=== PATIENT | female | born 1980 | race Caucasian/White ===

== ENCOUNTER → 2016-06-30 | Outpatient (CLI) | payer BC ==
--- NOTE | 2016-06-30 11:00 | MM ---
Reason for exam: follow-up at short interval from prior study. Last mammogram was performed 6 months ago. History: Excisional biopsy of the right breast, October 2014. Benign US biopsy breast VAD RT of the right breast, July 22, 2014. Taking hormonal contraceptives for 18 years. Physical Findings: Nurse did not find any significant physical abnormalities on exam. MG 3D Diag Mammo W/Cad JUSTEN Bilateral CC and MLO view(s) were taken. Prior study comparison: January 01, 2016, right breast MG diagnostic mammo RT w CAD. July 06, 2015, right breast MG 3d work up w/cad RT. The breast tissue is heterogeneously dense. This may lower the sensitivity of mammography. No significant changes when compared with prior studies. ASSESSMENT: Benign, BI-RAD 2 RECOMMENDATION: Ultrasound of the right breast in 6 months.
--- NOTE | 2016-06-30 11:02 | USB ---
Reason for exam: additional evaluation requested from abnormal screening. History: Excisional biopsy of the right breast, October 2014. Benign US biopsy breast VAD RT of the right breast, July 22, 2014. Taking hormonal contraceptives for 18 years. US Breast RT Right breast ultrasound including all four quadrants, the retroareolar region and axilla demonstrates a 0.42 x 0.43 x 0.73cm mixed lesion at 1 o'clock, a 0.38 x 0.34 x 0.13cm lesion too small to characterize at 1 o'clock, ductal ectasia at the nipple and a 0.48 x 0.37 x 0.49cm lesion too small to characterize at 10 o'clock. These results were verbally communicated with the patient and result sheet given to the patient on 06/30/16. ASSESSMENT: Probably benign, BI-RAD 3 RECOMMENDATION: Ultrasound of the right breast in 6 months.
== END | disposition home or self-care (01) ==
LOC: RADMAMWWP 09:11
PROVIDERS: ATTEND Surgery
DX: R92.8 Other abnormal and inconclusive findings on diagnostic imaging of breast (principal)
CPT/HCPCS: 76641; G0204; G0279

== ENCOUNTER → 2016-06-30 | Outpatient (CLI) | payer BC ==
[2016-06-30 09:57] LABS: ALT 25 U/L (9-52); AST 22 U/L (14-36); Alkaline Phosphatase 56 U/L (38-126); Anion Gap 11 mmol/L; Blood Urea Nitrogen 11 mg/dL (7-17); Calcium 9.2 mg/dL (8.4-10.2); Carbon Dioxide 25 mmol/L (22-30); Chloride 104 mmol/L (98-107); Cholesterol 202 mg/dL (<200); Glucose 89 mg/dL (74-99); HDL Cholesterol 62 mg/dL (40-60); Non-African American GFR(MDRD) >60 (>60 ml/min/1.73 sqM); Potassium 4.9 mmol/L (3.5-5.1); Sodium 140 mmol/L (137-145); Total Bilirubin 1.2 mg/dL (0.2-1.3); Total Protein 7.5 g/dL (6.3-8.2); Triglycerides 240 mg/dL (<150)
== END | disposition home or self-care (01) ==
LOC: LABWHC1 08:55
PROVIDERS: ATTEND Internal Medicine Interventional Cardiology
DX: E78.5 Hyperlipidemia, unspecified (principal)
CPT/HCPCS: 36415; 80053; 80061; 84443

== ENCOUNTER → 2017-02-06 | Outpatient (CLI) | payer BC ==
--- NOTE | 2017-02-06 11:10 | USB ---
Reason for exam: follow-up at short interval from prior study. History: Excisional biopsy of the right breast, October 2014. Benign US biopsy breast VAD RT of the right breast, July 22, 2014. Taking hormonal contraceptives for 18 years. Physical Findings: Nurse did not find any significant physical abnormalities on exam. US Breast RT Right breast ultrasound includes all four quadrants, the retroareolar region and axilla. Finding demonstrates a 0.4 x 0.5 x 0.6cm lesion too small to characterize at 1 o'clock, stable, a 0.40 x 0.23 x 0.37cm lesion too small to characterize at 1o'clock, stable, a 0.5 x 0.4 x 0.3cm lesion too small to characterize at 10 o'clock, stable, and duct ectasia at the nipple. No significant cystic or solid lesion greater than 0.50cm. These results were verbally communicated with the patient and result sheet given to the patient on 02/06/17. ASSESSMENT: Benign, BI-RAD 2 RECOMMENDATION: Routine screening mammogram of both breasts at age 39.
== END | disposition home or self-care (01) ==
LOC: RADUSWWP 10:08
PROVIDERS: ATTEND Obstetrics & Gynecology
DX: R92.8 Other abnormal and inconclusive findings on diagnostic imaging of breast (principal)

== ENCOUNTER → 2019-11-14 | Outpatient (CLI) | payer BC ==
--- NOTE | 2019-11-14 17:55 | P.HPBAR ---
Bariatric H&P - History & Physicial H&P Date: 11/14/19 History & Physicial: Visit/CC: INITIAL VISIT Patient initial contact: Initial weight: 98.543 kg Initial weight in pounds: 217.25 Height: 5 ft 4.5 in Initial BMI: 36.7 Last weight: Current weight: 98.543 kg Current weight in pounds: 217.25 Current BMI: 36.7 [place] body weight (based on NIH guidelines): 55.565 kg Excess body weight loss: 0.0% The patient is a 39 year-old F who presents for Bariatric Assessment. Patient seen today as a new patient in the bariatric clinic. Patient interested in sleeve gastrectomy. Patient presents with a BMI 36.7. Comorbidities include hypertension and hypercholesterolemia and chronic reflux. Denies history of DVT or dysphagia. Takes [id number] medications for her reflux. No previous EGD. No abdominal surgeries in the past. He is interested in sleeve gastrectomy. 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 No tobacco history. Review of Systems The patient denies any acute changes in vision or hearing, no dysphagia or odynophagia, no chest pain or shortness of breath, no dysuria or hematuria, no headache, no runny nose, no rectal bleeding or melena, no unexplained weight loss Past Medical History Past Medical History: No Reported History History of Any Multi-Drug Resistant Organisms: None Reported Past Surgical History: Tonsillectomy Past Anesthesia/Blood Transfusion Reactions: No Reported Reaction Past Psychological History: No Psychological Hx Reported Smoking Status: Never smoker Past Alcohol Use History: Occasional Past Drug Use History: None Reported - Past Family History Mother Family Medical History: No Reported History Surgical - Exam Vital Signs Temp Pulse Resp BP 98.1 F 90 16 131/83 11/14/19 13:50 11/14/19 13:50 11/14/19 13:50 11/14/19 13:50 Physical exam: General: Well-developed, well-nourished HEENT: Normocephalic, sclerae nonicteric Abdomen: Nontender, nondistended Extremities: No edema Neuro: Alert and oriented Bariatric Assessment & Plan (1) Obesity (BMI 30-39.9) Narrative/Plan: Both surgical and nonoperative weight loss methods discussed with the patient. Risks and benefits of both gastric bypass and sleeve gastrectomy discussed in detail as well. Patient remains interested in sleeve gastrectomy at this time. Patient has finished 2 out of the 7 months of supervised weight loss. Will plan EGD 3-4 months from now. Will have patient follow-up in the bariatric clinic following that. Status: Acute Bariatric Checklist Checklist: Plan: Checklist: EGD: 1. Hiatal hernia: 2. H. Pylori: HgbA1c: Vitamin D: Smoking: Never smoker Primary care physician referral: IL[facility] Psychiatry clearance: Cardiology clearance: Sleep study: Diet journal: VTE risk score: VTE risk level: Rehab needs at discharge:
[2019-11-15 10:13] VITALS: BP 131/83; PULSE 90; RESP 16; TEMP 98.1; BMI 36.7
== END | disposition home or self-care (01) ==
LOC: BARWHC3 13:11
PROVIDERS: ATTEND Surgery
DX: E66.01 Morbid (severe) obesity due to excess calories (principal); Z68.36 Body mass index [BMI] 36.0-36.9, adult; Z98.84 Bariatric surgery status
CPT/HCPCS: 99211

== ENCOUNTER → 2019-11-22 | Outpatient (CLI) | payer BC ==
[2019-11-22 15:30] LABS: HCT 40.3 % (34.0-46.0); HGB 13.4 gm/dL (11.4-16.0); MCH 29.4 pg (25.0-35.0); MCHC 33.2 g/dL (31.0-37.0); MCV 88.5 fL (80.0-100.0); Mean Platelet Volume 6.6; Platelet Count 320 k/uL (150-450); RBC 4.55 m/uL (3.80-5.40); RDW 12.7 % (11.5-15.5); WBC 9.1 k/uL (3.8-10.6)
[2019-11-22 23:50] LABS: African American GFR (CKD) 125.6 (60.0-200.0); Albumin 4.3 g/dL (3.80-4.90); Albumin/Globulin Ratio 2.05 (1.60-3.17); Anion Gap 9.1 mmol/L (4.00-12.00); BUN/Creat Ratio 14.29 Ratio (12.00-20.00); Calcium 9.4 mg/dL (8.7-10.3); Carbon Dioxide 25.9 mmol/L (21.6-31.8); Globulin 2.1 g/dL (1.6-3.3); Non-African American GFR(CKD) 108.4 (60.0-200.0); Potassium 4.2 mmol/L (3.5-5.5); Total Bilirubin 0.7 mg/dL (0.2-1.2); Total Protein 6.4 g/dL (6.2-8.2)
[2019-11-23 02:16] LABS: Hemoglobin A1C 5.9 % (4.0-6.0)
== END | disposition home or self-care (01) ==
LOC: LABWHC1 14:24
PROVIDERS: ATTEND Surgery
DX: K90.89 Other intestinal malabsorption (principal); E55.9 Vitamin D deficiency, unspecified; Z11.59 Encounter for screening for other viral diseases
CPT/HCPCS: 36415; 80053; 82306; 82607; 82746; 83036; 83540; 84425; 85027; 86769; 93005

== ENCOUNTER 2020-01-27 08:42 | Emergency (ER) | payer BC ==
[2020-01-27] MEDS ORDERED: SODIUM CHLORIDE 0.9% 1,000 ML IV STA (09:02)
[2020-01-27] MEDS ORDERED: ONDANSETRON 4 MG/2 ML VIAL IVP STA (09:02)
[2020-01-27] MEDS ORDERED: MAG HYDROX/AL HYDROX/SIMETH 30 ML, HYOSCYAMINE ELIXIR 10 ML PO STA ×2 (09:03)
--- NOTE | 2020-01-27 09:15 | ED ---
Abdominal Pain HPI - General Chief Complaint: Abdominal Pain Stated Complaint: upper abd pain Time Seen by Provider: 01/27/20 08:56 Source: patient, family, RN notes reviewed Mode of arrival: ambulatory Limitations: no limitations - History of Present Illness Initial Comments: This a 39-year-old female presents emergency Department chief complaint of upper abdominal pain. Patient states she's had some on-and-off issues states that she felt symptoms worsen after lifting heavy boxes this weekend. She does have a known umbilical hernia. Patient states pain is persistent states she is a somewhat twisting bending in her epigastric region denies any chest pain or shortness breath. She has meant that she has reflux and occasionally takes omeprazole presented and regular basis. She had 2 episodes of diarrhea denies any melena or hematochezia. Patient denies any hematemesis or coffee-ground emesis. She states she is very nauseated at this point. Patient states the pain wraps around her upper abdomen to her back. - Related Data Home Medications Medication Instructions Recorded Confirmed Desogen(Dose Ukn) 1 cap PO HS 10/13/14 11/14/19 Multivitamins, Thera [Theragran] 1 each PO DAILY 10/13/14 11/14/19 Rosuvastatin [Crestor] 10 mg PO DAILY 11/14/19 11/14/19 lisinopriL [Zestril] 10 mg PO DAILY 11/14/19 11/14/19 Previous Rx's Medication Instructions Recorded Dicyclomine [Bentyl] 20 mg PO TID #15 tablet 01/27/20 Omeprazole [PriLOSEC] 40 mg PO DAILY #14 cap 01/27/20 Ondansetron Odt [Zofran Odt] 4 mg PO Q8HR PRN #14 tab 01/27/20 Allergies Allergy/AdvReac Type Severity Reaction Status Date / Time acetaminophen [From Vicodin] Allergy Nausea & Verified 06/20/14 15:53 Vomiting hydrocodone bitartrate Allergy Nausea & Verified 06/20/14 15:53 [From Vicodin] Vomiting Review of Systems ROS Statement: Those systems with pertinent positive or pertinent negative responses have been documented in the HPI. ROS Other: All systems not noted in ROS Statement are negative. Past Medical History Past Medical History: No Reported History History of Any Multi-Drug Resistant Organisms: None Reported Past Surgical History: Tonsillectomy Past Anesthesia/Blood Transfusion Reactions: No Reported Reaction Past Psychological History: No Psychological Hx Reported Smoking Status: Never smoker Past Alcohol Use History: None Reported Past Drug Use History: None Reported - Past Family History Mother Family Medical History: No Reported History General Exam Limitations: no limitations General appearance: alert, in no apparent distress Head exam: Present: atraumatic, normocephalic, normal inspection Eye exam: Present: normal appearance, PERRL, EOMI. Absent: scleral icterus, conjunctival injection, periorbital swelling ENT exam: Present: normal exam, normal oropharynx, mucous membranes moist Neck exam: Present: normal inspection, full ROM. Absent: tenderness, meningismus, lymphadenopathy Respiratory exam: Present: normal lung sounds bilaterally. Absent: respiratory distress, wheezes, rales, rhonchi, stridor Cardiovascular Exam: Present: normal rhythm, tachycardia, normal heart sounds. Absent: systolic murmur, diastolic murmur, rubs, gallop, clicks GI/Abdominal exam: Present: soft, tenderness (Moderate epigastric), normal bowel sounds. Absent: distended, guarding, rebound, rigid Back exam: Absent: CVA tenderness (R), CVA tenderness (L) Neurological exam: Present: alert Skin exam: Present: warm, dry, intact, normal color. Absent: rash Course Vital Signs 01/27/20 08:46 Temperature 98.0 F Pulse Rate 118 H Respiratory 16 Rate Blood Pressure 132/91 O2 Sat by Pulse 99 Oximetry Medical Decision Making - Medical Decision Making 3-year-old female presents emergency Department chief complaint of epigastric pain. CT shows evidence of transverse colitis. Patient does have mild lactic acidosis thought this related to dehydration fluid depletion. Patient was hydrated, given antiemetics and does feel improved. Patient we discharged on clear liquid diet, antiemetics. Return parameters were discussed. - Lab Data Result diagrams: 01/27/20 09:08 01/27/20 09:08 Lab Results 01/27/20 01/27/20 01/27/20 Range/Units 09:08 09:08 09:08 WBC 11.4 H (3.8-10.6) k/uL RBC 5.12 (3.80-5.40) m/uL Hgb 14.8 (11.4-16.0) gm/dL Hct 44.4 (34.0-46.0) % MCV 86.6 (80.0-100.0) fL MCH 28.9 (25.0-35.0) pg MCHC 33.4 (31.0-37.0) g/dL RDW 12.6 (11.5-15.5) % Plt Count 324 (150-450) k/uL Neutrophils % 83 % Lymphocytes % 11 % Monocytes % 4 % Eosinophils % 2 % Basophils % 0 % Neutrophils # 9.5 H (1.3-7.7) k/uL Lymphocytes # 1.2 (1.0-4.8) k/uL Monocytes # 0.4 (0-1.0) k/uL Eosinophils # 0.2 (0-0.7) k/uL Basophils # 0.0 (0-0.2) k/uL Sodium 135 L (137-145) mmol/L Potassium 4.5 (3.5-5.1) mmol/L Chloride 100 (98-107) mmol/L Carbon Dioxide 23 (22-30) mmol/L Anion Gap 12 mmol/L BUN 7 (7-17) mg/dL Creatinine 0.57 (0.52-1.04) mg/dL Est GFR (CKD-EPI)AfAm >90 (>60 ml/min/1.73 sqM) Est GFR (CKD-EPI)NonAf >90 (>60 ml/min/1.73 sqM) Glucose 140 H (74-99) mg/dL Plasma Lactic Acid Julian (0.7-2.0) mmol/L Calcium 9.4 (8.4-10.2) mg/dL Total Bilirubin 0.7 (0.2-1.3) mg/dL AST 39 H (14-36) U/L ALT 39 H (4-34) U/L Alkaline Phosphatase 85 (38-126) U/L Total Protein 7.2 (6.3-8.2) g/dL Albumin 4.2 (3.5-5.0) g/dL Amylase 50 (30-110) U/L Lipase 86 (23-300) U/L Urine Color Yellow Urine Appearance Clear (Clear) Urine pH 7.5 (5.0-8.0) Ur Specific Palm 1.014 (1.001-1.035) Urine Protein Negative (Negative) Urine Glucose (UA) Negative (Negative) Urine Ketones Negative (Negative) Urine Blood Trace H (Negative) Urine Nitrite Negative (Negative) Urine Bilirubin Negative (Negative) Urine Urobilinogen <2.0 (<2.0) mg/dL Ur Leukocyte Esterase Negative (Negative) Urine RBC 1 (0-5) /hpf Urine WBC <1 (0-5) /hpf Ur Squamous Epith Cells <1 (0-4) /hpf Urine Bacteria Occasional H (None) /hpf Urine Mucus Rare H (None) /hpf 01/27/20 Range/Units 09:08 WBC (3.8-10.6) k/uL RBC (3.80-5.40) m/uL Hgb (11.4-16.0) gm/dL Hct (34.0-46.0) % MCV (80.0-100.0) fL MCH (25.0-35.0) pg MCHC (31.0-37.0) g/dL RDW (11.5-15.5) % Plt Count (150-450) k/uL Neutrophils % % Lymphocytes % % Monocytes % % Eosinophils % % Basophils % % Neutrophils # (1.3-7.7) k/uL Lymphocytes # (1.0-4.8) k/uL Monocytes # (0-1.0) k/uL Eosinophils # (0-0.7) k/uL Basophils # (0-0.2) k/uL Sodium (137-145) mmol/L Potassium (3.5-5.1) mmol/L Chloride (98-107) mmol/L Carbon Dioxide (22-30) mmol/L Anion Gap mmol/L BUN (7-17) mg/dL Creatinine (0.52-1.04) mg/dL Est GFR (CKD-EPI)AfAm (>60 ml/min/1.73 sqM) Est GFR (CKD-EPI)NonAf (>60 ml/min/1.73 sqM) Glucose (74-99) mg/dL Plasma Lactic Acid Julian 2.2 H* (0.7-2.0) mmol/L Calcium (8.4-10.2) mg/dL Total Bilirubin (0.2-1.3) mg/dL AST (14-36) U/L ALT (4-34) U/L Alkaline Phosphatase (38-126) U/L Total Protein (6.3-8.2) g/dL Albumin (3.5-5.0) g/dL Amylase (30-110) U/L Lipase (23-300) U/L Urine Color Urine Appearance (Clear) Urine pH (5.0-8.0) Ur Specific Palm (1.001-1.035) Urine Protein (Negative) Urine Glucose (UA) (Negative) Urine Ketones (Negative) Urine Blood (Negative) Urine Nitrite (Negative) Urine Bilirubin (Negative) Urine Urobilinogen (<2.0) mg/dL Ur Leukocyte Esterase (Negative) Urine RBC (0-5) /hpf Urine WBC (0-5) /hpf Ur Squamous Epith Cells (0-4) /hpf Urine Bacteria (None) /hpf Urine Mucus (None) /hpf Disposition Clinical Impression: Colitis Disposition: HOME SELF-CARE Condition: Stable Instructions (If sedation given, give patient instructions): Colitis (ED) Additional Instructions: Please return to the Emergency Department if symptoms worsen or any other concerns. Prescriptions: Dicyclomine [Bentyl] 20 mg PO TID #15 tablet Omeprazole [PriLOSEC] 40 mg PO DAILY #14 cap Ondansetron Odt [Zofran Odt] 4 mg PO Q8HR PRN #14 tab PRN Reason: Nausea Is patient prescribed a controlled substance at d/c from ED?: No Referrals: Rebecca Lawrence MD [Primary Care Provider] - 1-2 days Time of Disposition: 10:20
[2020-01-27 09:30] LABS: Basophils % (A) 0 %; Eosinophils # (A) 0.2 k/uL (0-0.7); Eosinophils % (A) 2 %; HCT 44.4 % (34.0-46.0); HGB 14.8 gm/dL (11.4-16.0); Lymphocytes # (A) 1.2 k/uL (1.0-4.8); Lymphocytes % (A) 11 %; MCH 28.9 pg (25.0-35.0); MCHC 33.4 g/dL (31.0-37.0); MCV 86.6 fL (80.0-100.0); Mean Platelet Volume 6.7; Monocytes # (A) 0.4 k/uL (0-1.0); Monocytes % (A) 4 %; Neutrophils # (A) 9.5 k/uL (1.3-7.7); Neutrophils % (A) 83 %; Platelet Count 324 k/uL (150-450); RBC 5.12 m/uL (3.80-5.40); RDW 12.6 % (11.5-15.5); WBC 11.4 k/uL (3.8-10.6)
[2020-01-27 09:31] LABS: ALT 39 U/L (4-34); AST 39 U/L (14-36); African American GFR (CKD) >90 (>60 ml/min/1.73 sqM); Albumin 4.2 g/dL (3.5-5.0); Alkaline Phosphatase 85 U/L (38-126); Amylase 50 U/L (30-110); Anion Gap 12 mmol/L; Blood Urea Nitrogen 7 mg/dL (7-17); Calcium 9.4 mg/dL (8.4-10.2); Carbon Dioxide 23 mmol/L (22-30); Chloride 100 mmol/L (98-107); Glucose 140 mg/dL (74-99); Non-African American GFR(CKD) >90 (>60 ml/min/1.73 sqM); Potassium 4.5 mmol/L (3.5-5.1); Sodium 135 mmol/L (137-145); Total Bilirubin 0.7 mg/dL (0.2-1.3); Total Protein 7.2 g/dL (6.3-8.2)
[2020-01-27 09:46] LABS: Appearance,Urine Clear (Clear); Bacteria,Urine Occasional /hpf; Bilirubin,Urine Negative (Negative); Blood,Urine Trace (Negative); Color,Urine Yellow; Glucose,Urine (UA) Negative (Negative); Ketones,Urine Negative (Negative); Leukocyte Esterase,Urine Negative (Negative); Mucus,Urine Rare /hpf; Nitrite,Urine Negative (Negative); PH, Urine 7.5 (5.0-8.0); Protein,Urine Negative (Negative); RBC,Urine 1 /hpf (0-5); Specific Gravity,Urine 1.014 (1.001-1.035); Squamous Epithelial Cell,Urine <1 /hpf (0-4); Urobilinogen,Urine <2.0 mg/dL (<2.0); WBC,Urine <1 /hpf (0-5)
[2020-01-27] MEDS ORDERED: diphenhydrAMINE 50 MG/ML 1 ML VIAL IVP STA (09:53)
[2020-01-27] MEDS ORDERED: METOCLOPRAMIDE 5 MG/ML 2 ML VIAL IVP STA (09:53)
[2020-01-27] MEDS ORDERED: KETOROLAC 15 MG/ML 1 ML VIAL IVP STA (10:11)
--- NOTE | 2020-01-27 10:11 | CT ---
EXAMINATION TYPE: CT abdomen pelvis w con DATE OF EXAM: 01/27/2020 COMPARISON: None HISTORY: Mid Upper Abdominal pain with history of hernia. CT DLP: 1673 mGycm Automated exposure control for dose reduction was used. TECHNIQUE: Helical acquisition of images from the lung bases through the pelvis have been completed. CONTRAST: Performed without Oral Contrast and with IV Contrast, patient injected with 100 mL of Isovue 300. FINDINGS: Umbilical hernia contains fat. LUNG BASES: No significant abnormality is appreciated. AORTA: No significant abnormality is appreciated. LIVER/GB: Liver shows low attenuation possibly due to hepatic steatosis, gallbladder is normal.. PANCREAS: No significant abnormality is seen. SPLEEN: Borderline enlarged. ADRENALS: No significant abnormality is seen. KIDNEYS: Right kidney is malrotated, there is cortical scar present in the upper pole, there is marti l excretion and enhancement. Nonobstructive calculus present at the midpole the right kidney measures only 5 to 6 mm REPRODUCTIVE ORGANS: No significant abnormality is seen BOWEL: Question some thickening of the transverse colon, ascending colon, terminal ileum, the append ix is normal, there is no bowel obstruction. Some fluid-filled loops of small bowel are present. The appendix is normal. FREE AIR: No Free Air visible. ASCITES: None visible. PELVIC ADENOPATHY: None visualized. RETROPERITONEAL ADENOPATHY: No Retroperitoneal Adenopathy visible. URINARY BLADDER: No significant abnormality is seen. OSSEOUS STRUCTURES: No significant abnormality is seen. IMPRESSION: CORRELATE FOR COLITIS. Nonobstructive right renal calculus. Hepatic steatosis and borderline splenome klaus.
[2020-01-27 10:45] VITALS: BP 120/78; PULSE 91; RESP 18; TEMP 98
== END 2020-01-27 10:45 | disposition home or self-care (01) ==
LOC: EC 08:42
DX: K52.9 Noninfective gastroenteritis and colitis, unspecified (principal); E87.2 Acidosis; K42.9 Umbilical hernia without obstruction or gangrene; Z79.3 Long term (current) use of hormonal contraceptives; Z79.899 Other long term (current) drug therapy; Z88.5 Allergy status to narcotic agent; Z88.8 Allergy status to other drugs, medicaments and biological substances
CPT/HCPCS: 36415; 80053; 82150; 83605; 83690; 85025; 81001; 74177; 99284; 96374; 96375; 96361; J2405; J1885; Q9967

== ENCOUNTER → 2020-03-17 | Day surgery (SDC) | payer BC ==
[2020-03-13 14:21] VITALS: BMI 37.2
[~2020-03-17] MED LIST: GLYCOPYRROLATE 0.2 MG/ML 2 ML VIAL ONE; LACTATED RINGERS 1,000 ML IV SCH; LIDOCAINE 1% (10MG/ML) FOR IV START INTRADERMA PRN; LIDOCAINE 1% INJ 10MG/ML (20 ML MDV) ONE; PROPOFOL 10 MG/ML 20 ML VIAL IV ONE
[2020-03-17 09:03] VITALS: RESP 16; TEMP 98.4
--- NOTE | 2020-03-17 09:50 | P.GSHP ---
History of Present Illness H&P Date: 03/17/20 Chief Complaint: GERD Patient here today for upper endoscopy. Complaints of mild reflux. Being evaluated for sleeve gastrectomy. Has not had an EGD before. No dysphagia. Past Medical History Past Medical History: GERD/Reflux History of Any Multi-Drug Resistant Organisms: None Reported Past Surgical History: Tonsillectomy Additional Past Surgical History / Comment(s): bx rt breast Past Anesthesia/Blood Transfusion Reactions: No Reported Reaction Additional Past Anesthesia/Blood Transfusion Reaction / Comment(s): no hx blood transfusion Smoking Status: Never smoker - Past Family History Mother Family Medical History: No Reported History Medications and Allergies Home Medications Medication Instructions Recorded Confirmed Type Desogen(Dose Ukn) 1 cap PO HS 10/13/14 03/13/20 History Multivitamins, Thera [Theragran] 1 each PO DAILY 10/13/14 03/13/20 History Rosuvastatin [Crestor] 10 mg PO HS 11/14/19 03/13/20 History lisinopriL [Zestril] 10 mg PO HS 11/14/19 03/13/20 History Omeprazole [PriLOSEC] 20 mg PO HS 03/13/20 03/13/20 History Allergies Allergy/AdvReac Type Severity Reaction Status Date / Time cefdinir Allergy colitis Verified 03/17/20 09:04 hydrocodone bitartrate Allergy Nausea & Verified 03/17/20 09:04 [From Vicodin] Vomiting Surgical - Exam Vital Signs Temp Pulse Resp BP Pulse Ox 98.4 F 106 H 16 135/83 97 03/17/20 09:02 03/17/20 09:02 03/17/20 09:02 03/17/20 09:02 03/17/20 09:02 Physical exam: General: Well-developed, well-nourished HEENT: Normocephalic, sclerae nonicteric Abdomen: Nontender, nondistended Extremities: No edema Neuro: Alert and oriented Assessment and Plan (1) GERD (gastroesophageal reflux disease) Narrative/Plan: Will proceed with upper endoscopy Current Visit: Yes Status: Acute Code(s): K21.9 - GASTRO-ESOPHAGEAL REFLUX DISEASE WITHOUT ESOPHAGITIS SNOMED Code(s): 054141941
--- NOTE | 2020-03-17 09:59 | P.PCN ---
Date of Procedure: 03/17/20 Procedure(s) Performed: Preoperative Dx: GERD, presurgical Postoperative Dx: Mild gastritis, small gastric polyp Procedure: EGD with Bx Anesthesia: Sedation Endoscopist: Dr. Peck Specimens: Gastric polyp Endoscopic Procedure: The patient was on the endoscopy table in the left decubitus position. The Olympus gastroscope was inserted into the oropharynx and passed under direct visualization to the region of the third portion of the duodenum. From that point the scope was slowly withdrawn inspecting all surfaces carefully. There were no neoplastic inflammatory or polypoid lesions throughout the duodenum. The pylorus was widely patent. The stomach was carefully inspected. There was gastritis present. A biopsy of the antrum took place to rule out H. pylori. Retroflexion revealed a normal hiatus. A few small gastric polyps are seen. One of which was removed. The esophagus was then carefully examined. There were no neoplastic inflammatory or polypoid lesions throughout the visualized esophagus. The patient was then taken to the recovery room in stable condition per anesthesia guidelines. Recommendations: Await biopsy results. Follow-up in the bariatric center. Resume diet.
[2020-03-17 10:19] VITALS: BP 117/73; PULSE 88
== END ==
LOC: ORWHC2ENDO 08:47
PROVIDERS: ATTEND Surgery
DX: K29.50 Unspecified chronic gastritis without bleeding (principal); K31.7 Polyp of stomach and duodenum; K21.9 Gastro-esophageal reflux disease without esophagitis; I10 Essential (primary) hypertension; E78.5 Hyperlipidemia, unspecified; Z98.890 Other specified postprocedural states; Z79.899 Other long term (current) drug therapy; Z88.1 Allergy status to other antibiotic agents; Z88.5 Allergy status to narcotic agent
CPT/HCPCS: 81025; 88305; 43239; J2001; J2704

== ENCOUNTER → 2020-04-06 | Outpatient (CLI) | payer BC ==
[2020-04-06 11:32] VITALS: BMI 37.0
== END | disposition home or self-care (01) ==
LOC: BARWHC3 08:38
PROVIDERS: ATTEND Surgery
DX: E66.01 Morbid (severe) obesity due to excess calories (principal); Z71.3 Dietary counseling and surveillance; Z68.37 Body mass index [BMI] 37.0-37.9, adult
CPT/HCPCS: 97804

== ENCOUNTER → 2020-04-28 | Outpatient (CLI) | payer BC ==
[2020-04-28 14:49] VITALS: BP 137/78; PULSE 103; RESP 16; TEMP 97.8; BMI 37.1
--- NOTE | 2020-04-28 16:31 | P.BASOAP ---
Subjective Progress Note Date: 04/28/20 Principal diagnosis: Morbid obesity Patient returns for reevaluation after recent EGD. EGD performed 03/17 showed gastritis and a small polyp. Biopsies are negative. No changes to her previous history and physical. She recently completed her seven-month supervised weight loss with her primary care physician. Objective - Vital Signs Vital signs: Vital Signs Temp 97.8 F 04/28/20 14:46 Pulse 103 H 04/28/20 14:46 Resp 16 04/28/20 14:46 BP 137/78 04/28/20 14:46 Pulse Ox Intake & Output 04/27/20 04/28/20 04/28/20 18:59 06:59 18:59 Weight 99.79 kg - Exam Abdomen: Soft, nontender, nondistended Assessment/Plan (1) Obesity (BMI 30-39.9) Narrative/Plan: Patient doing well after recent EGD. We'll move forward with plans for laparoscopic sleeve gastrectomy in June. Surgical consent form reviewed in detail with the patient. All questions answered. Plan: Date: 04/28/20 Initial Weight: 98.543 kg Initial BMI: 36.7 Current Weight: 99.79 kg Current BMI: 37.1 Type of Surgery: Vertical Sleeve Gastrectomy Total Volume in Band: Previous Volume: Volume Removed: Volume Added: Band Size:
== END | disposition home or self-care (01) ==
LOC: BARWHC3 14:20
PROVIDERS: ATTEND Surgery
DX: E66.01 Morbid (severe) obesity due to excess calories (principal); Z68.37 Body mass index [BMI] 37.0-37.9, adult
CPT/HCPCS: 99211

== ENCOUNTER → 2020-05-20 | Outpatient (CLI) | payer BC ==
[2020-05-20 14:54] LABS: Basophils % (A) 1 %; Eosinophils # (A) 0.2 k/uL (0-0.7); Eosinophils % (A) 3 %; HCT 40.2 % (34.0-46.0); HGB 13.8 gm/dL (11.4-16.0); Lymphocytes # (A) 1.8 k/uL (1.0-4.8); Lymphocytes % (A) 21 %; MCH 30.2 pg (25.0-35.0); MCHC 34.3 g/dL (31.0-37.0); MCV 88.2 fL (80.0-100.0); Mean Platelet Volume 6.3; Monocytes # (A) 0.4 k/uL (0-1.0); Monocytes % (A) 5 %; Neutrophils # (A) 6.1 k/uL (1.3-7.7); Neutrophils % (A) 70 %; Platelet Count 317 k/uL (150-450); RBC 4.56 m/uL (3.80-5.40); RDW 12.8 % (11.5-15.5); WBC 8.7 k/uL (3.8-10.6)
[2020-05-20 15:09] LABS: ALT 100 U/L (4-34); AST 85 U/L (14-36); African American GFR (CKD) >90 (>60 ml/min/1.73 sqM); Albumin 4.1 g/dL (3.5-5.0); Alkaline Phosphatase 73 U/L (38-126); Anion Gap 9 mmol/L; Blood Urea Nitrogen 11 mg/dL (7-17); Calcium 9.2 mg/dL (8.4-10.2); Carbon Dioxide 25 mmol/L (22-30); Chloride 101 mmol/L (98-107); Glucose 98 mg/dL (74-99); Non-African American GFR(CKD) >90 (>60 ml/min/1.73 sqM); Potassium 4.1 mmol/L (3.5-5.1); Sodium 135 mmol/L (137-145); Total Bilirubin 0.6 mg/dL (0.2-1.3); Total Protein 6.9 g/dL (6.3-8.2)
== END | disposition home or self-care (01) ==
LOC: LABPAT 13:53
PROVIDERS: ATTEND Surgery
DX: Z01.818 Encounter for other preprocedural examination (principal)
CPT/HCPCS: 80053; 85025

== ENCOUNTER 2020-06-15 07:45 | Inpatient (IN) | payer BC ==
[~2020-06-15 07:45] MED LIST changes: +DEXAMETHASONE SOD PHOSPHATE 4 MG/ML 1 ML VIAL IV ONE; +ENOXAPARIN 40 MG/0.4 ML SYRINGE SQ PRN; -GLYCOPYRROLATE 0.2 MG/ML 2 ML VIAL ONE; +HYDROmorphone 0.5 MG/0.5 ML SYRINGE IVP PRN; -LACTATED RINGERS 1,000 ML IV SCH; -LIDOCAINE 1% (10MG/ML) FOR IV START INTRADERMA PRN; -LIDOCAINE 1% INJ 10MG/ML (20 ML MDV) ONE; +ONDANSETRON 4 MG/2 ML VIAL IVP ONE; -PROPOFOL 10 MG/ML 20 ML VIAL IV ONE
--- NOTE | 2020-06-15 09:47 | P.GSHP ---
History of Present Illness H&P Date: 06/15/20 Chief Complaint: Morbid obesity 40-year-old female first seen in the bariatric center in November of last year. Patient has been interested in sleeve gastrectomy. Resonant with a BMI of 36.7. Recent BMI 37. Patient suffers from hypertension, hypercholesterolemia, reflux disease. Denies DVT or dysphagia. Recent EGD showed gastritis and small gastric polyp. Patient is not interested in gastric bypass given the amount of weight that she needs to lose and also the long-term comorbidities. Past Medical History Past Medical History: GERD/Reflux, Hyperlipidemia, Hypertension Additional Past Medical History / Comment(s): hx colitis once from antibiotic, hx gout, History of Any Multi-Drug Resistant Organisms: None Reported Past Surgical History: Breast Surgery, Tonsillectomy Additional Past Surgical History / Comment(s): rt breast biopsy/lumpectomy Past Anesthesia/Blood Transfusion Reactions: No Reported Reaction Smoking Status: Never smoker - Past Family History Mother Family Medical History: No Reported History Medications and Allergies Home Medications Medication Instructions Recorded Confirmed Type Multivitamins, Thera [Theragran] 1 each PO HS 10/13/14 06/09/20 History Rosuvastatin [Crestor] 10 mg PO HS 11/14/19 06/09/20 History lisinopriL [Zestril] 10 mg PO HS 11/14/19 06/09/20 History Omeprazole [PriLOSEC] 20 mg PO HS 03/13/20 06/09/20 History Melatonin 10 mg PO HS 06/09/20 06/09/20 History Norethindrone-E.estradiol-Iron 1 each PO HS 06/09/20 06/09/20 History [Aurovela 24 Fe 1 mg-20 Mcg Tab] Allergies Allergy/AdvReac Type Severity Reaction Status Date / Time cefdinir Allergy colitis Verified 06/09/20 14:11 hydrocodone bitartrate Allergy Nausea & Verified 06/09/20 14:11 [From Vicodin] Vomiting Surgical - Exam Physical exam: General: Well-developed, well-nourished HEENT: Normocephalic, sclerae nonicteric Abdomen: Nontender, nondistended Extremities: No edema Neuro: Alert and oriented Assessment and Plan (1) Obesity (BMI 30-39.9) Narrative/Plan: 40-year-old female with obesity and comorbidities. We'll proceed with laparoscopic sleeve gastrectomy at this time. The risks of bleeding, infection, stenosis, stricture, leak, abscess, fistula formation, peritonitis, poor weight loss, reflux, vomiting, conversion to an open procedure, aborting sleeve gastrectomy, ME, PE, DVT, and were discussed. The patient understands and wishes to proceed. Current Visit: No Status: Acute Code(s): E66.9 - OBESITY, UNSPECIFIED SNOMED Code(s): 471581773
[2020-06-15] MEDS: LACTATED RINGERS 1,000 ML IV SCH (10:13)
[2020-06-15] MEDS ORDERED: LIDOCAINE 1% (10MG/ML) FOR IV START INTRADERMA ONE (10:14)
[2020-06-15] MEDS ORDERED: SUCCINYLCHOLINE CHLORIDE 100 MG/5 ML SYR IV ONE (12:31)
[2020-06-15] MEDS ORDERED: LIDOCAINE 1% INJ 10MG/ML (20 ML MDV) ONE (12:31)
[2020-06-15] MEDS ORDERED: fentaNYL (PF) 50 MCG/ML 2 ML AMP ONE (12:31)
[2020-06-15] MEDS ORDERED: ROCURONIUM 10 MG/ML (10 ML VIAL) IV ONE (12:31)
[2020-06-15] MEDS ORDERED: PROPOFOL 10 MG/ML 20 ML VIAL IV ONE (12:31)
[2020-06-15] MEDS ORDERED: GLYCOPYRROLATE 0.2 MG/ML 2 ML VIAL ONE (12:31)
[2020-06-15] MEDS ORDERED: NEOSTIGMINE 1 MG/ML 10 ML VIAL ONE (12:31)
[2020-06-15] MEDS ORDERED: ONDANSETRON 4 MG/2 ML VIAL ONE (12:31)
[2020-06-15] MEDS ORDERED: MIDAZOLAM 2 MG/2 ML VIAL ONE (12:31)
[2020-06-15] MEDS ORDERED: BUPIVACAIN-EPI 0.5%-1:200,000 30 ML VIAL SQ ONE ×2 (13:00)
[2020-06-15] MEDS ORDERED: LACTATED RINGERS 1,000 ML IV ONE ×2 (13:00→16:07)
[2020-06-15] MEDS ORDERED: ACETAMINOPHEN IV (For NPO) 1,000 MG in EMPTY BAG 1 BAG IVPB ONE (14:37)
[2020-06-15] MEDS ORDERED: NALOXONE 0.4 MG/ML 1 ML VIAL IV PRN (14:37)
--- NOTE | 2020-06-15 14:44 | P.OP ---
Date of Procedure: 06/15/20 Procedure(s) Performed: PREOPERATIVE DIAGNOSIS: Morbid obesity, hypertension, hypercholesterolemia POSTOPERATIVE DIAGNOSIS: Same, umbilical hernia PROCEDURE: Laparoscopic sleeve gastrectomy , repair umbilical hernia SURGEON: Cisco EBL: Minimal ANESTHESIA: General COMPLICATIONS: None OPERATIVE PROCEDURE: Patient was placed in the operating table in the supine position. She was placed under general anesthesia at that time. The abdomen was prepped and draped in sterile fashion after the patient was placed in lithotomy. A 5 mm optical trocar was used to enter the abdominal cavity in the left upper quadrant. Insufflation took place to 15 millimeters mercury. An additional right subxiphoid 5 mm trocar was then placed under direct visualization and then removed. 2 additional 5 mm trochars were placed in the right upper quadrant and left upper quadrant under direct visualization and a 15 mm trocar in the infraumbilical location through the patient's umbilical hernia fascial defect. The liver was retracted using a medium [place] liver retractor through the right subxiphoid trocar site. The hiatus was inspected. The patient had no visible hiatal hernia At that point I moved to the mid aspect of the greater curvature the stomach. The short gastric vasculature was divided using a LigaSure device proximally. I then switched and divided the short gastrics distally to a 3-4 cm from the pylorus. The dissection took place up to the left diaphragmatic crura at that point. The posterior short gastrics were likewise divided using the LigaSure device. Once the stomach was fully mobilized the blunt tipped 40-[place]izen [place] bougie dilator was advanced into the stomach and advanced all the way to the prepyloric location. A black echelon 60 stapler was utilized and fired tangentially across the antrum taking care to avoid narrowing at the incisura angularis. Subsequent firings of the stapler took place. A total of 5 green echelon 60 staplers with seam guard took place proximally staying on the outer edge of our dilator. Once we reached the most proximal portion of the stomach a single firing of the gold echelon 60 stapler without seen guard took place. The oral gastric tube was reinserted. The stomach was insufflated with approximately 100 mL of methylene blue. No eviden ce of leak or obstruction was seen. The distal aspect of the sleeve was then reapproximated to the gastrosplenic and gastrocolic ligament using a short running 2-0 strata fix suture. This was done to prevent kinking or twisting of the sleeve. Tisseel fibrin glue was used along the length of the staple line. The stomach remnant was removed from the 15 mm trocar site without difficulty. The pneumoperitoneum was evacuated. The fascia at the 15 more site was closed using interrupted #1 Vicryl sutures in a [id number] fashion closing the umbilical hernia defect nicely. The skin at all 5 incisions were closed using 4-0 Monocryl sutures. Skin glue was then applied. DISPOSITION: Stable to recovery room
[2020-06-15] MEDS ORDERED: diphenhydrAMINE 50 MG/ML 1 ML VIAL IVP ONE (15:15)
[2020-06-15] MEDS ORDERED: ACETAMINOPHEN IV (For NPO) 1,000 MG/100 ML VIAL IVPB ONE (15:33)
[2020-06-15] MEDS: ALBUTEROL NEBULIZED 2.5 MG/3 ML INHALATION SCH ×2 (16:35→20:31)
[2020-06-15] MEDS: 0.9% NACL WITH KCL 20 MEQ/L 1,000 ML IV SCH (17:01)
--- NOTE | 2020-06-15 20:21 | P.CONS ---
History of Present Illness - Reason for Consult Consult date: 06/15/20 Medical management - Chief Complaint Status post sleeve gastrectomy and repair of umbilical hernia. - History of Present Illness Patient is a 40-year-old female with a known history of hypertension, hyperlipidemia, GERD and osteoarthritis, history of gout and morbid obesity was admitted to hospital was admitted to the hospital for laparoscopic sleeve gastrectomy and elevated off umbilical hernia. Patient is still drowsy but awake alert and oriented. Patient's family member is at bedside. Currently complains of bloating sensation and abdominal discomfort. No complaints of chest pain or shortness of breath. No fever no chills. No headache or dizziness or lightheadedness. Blood pressure is 117/77 mmHg and heart rate 87. Review of Systems Constitutional: Patient denies any fever or chills . No generalized weakness or weight loss. Abdomen: Patient denied nausea vomiting and diarrhea and abdominal pain. Cardiovascular: Patient denies any chest pain or short of breath no palpitations. Respiratory: patient denied any cough or sputum production. No shortness of breath Neurologic: Patient denied any numbness or tingling headache. Musculoskeletal: Patient denies any complaints of joint swelling or deformity. Skin: Negative Psychiatric: Negative Endocrine: No heat or cold intolerance. No recent weight gain. Genitourinary: No dysuria or hematuria. All other 14 point ROS negative except the above Past Medical History Past Medical History: GERD/Reflux, Hyperlipidemia, Hypertension Additional Past Medical History / Comment(s): hx colitis once from antibiotic, hx gout, History of Any Multi-Drug Resistant Organisms: None Reported Past Surgical History: Breast Surgery, Tonsillectomy Additional Past Surgical History / Comment(s): rt breast biopsy/lumpectomy Past Anesthesia/Blood Transfusion Reactions: No Reported Reaction Smoking Status: Never smoker - Past Family History Mother Family Medical History: No Reported History Medications and Allergies Home Medications Medication Instructions Recorded Confirmed Type Multivitamins, Thera [Theragran] 1 each PO HS 10/13/14 06/15/20 History Rosuvastatin [Crestor] 10 mg PO HS 11/14/19 06/15/20 History lisinopriL [Zestril] 10 mg PO HS 11/14/19 06/15/20 History Omeprazole [PriLOSEC] 20 mg PO HS 03/13/20 06/15/20 History Melatonin 10 mg PO HS 06/09/20 06/15/20 History Norethindrone-E.estradiol-Iron 1 each PO HS 06/09/20 06/15/20 History [Aurovela 24 Fe 1 mg-20 Mcg Tab] Allergies Allergy/AdvReac Type Severity Reaction Status Date / Time cefdinir Allergy colitis Verified 06/15/20 10:17 hydrocodone bitartrate Allergy Nausea & Verified 06/15/20 10:17 [From Vicodin] Vomiting Physical Exam Vitals: Vital Signs Temp Pulse Resp BP Pulse Ox 06/15/20 15:14 74 16 124/68 94 L 06/15/20 14:59 75 16 129/70 97 06/15/20 14:44 86 16 132/71 94 L 06/15/20 09:56 98.5 F 100 16 132/85 95 Intake and Output 06/15/20 06/15/20 06/15/20 06:59 14:59 22:59 Intake Total 1450 Output Total 10 Balance 1440 Intake: IV 1450 Output: Estimated Blood Loss 10 Other: Weight 98 kg PHYSICAL EXAMINATION: Patient is lying in the bed comfortably, no acute distress, awake alert and oriented.. HEENT: Normocephalic. Neck is supple. Pupils reactive. Nostrils clear. Oral cavity is moist. Ears reveal no drainage. Neck reveals no JVD, carotid bruits, or thyromegaly. CHEST EXAMINATION: Trachea is central. Symmetrical expansion. Lung hart clear to auscultation and percussion. CARDIAC: Normal S1, S2 with no gallops. No murmurs ABDOMEN: Soft. Bowel sounds diminished. No organomegaly. No abdominal bruits. Extremities: reveal no edema. No clubbing or cyanosis Neurologically awake, alert, oriented x3 with well-coordinated movements. No focal deficits noted Skin: No rash or skin lesions. Psychiatric: Coperative. Nonsuicidal Musculoskeletal: No joint swelling or deformity. Normal range of motion. Assessment and Plan Assessment: Status post sleeve gastrectomy and repair of umbilical hernia. Morbid obesity with BMI 37.1 Hypertension Hyperlipidemia GERD History of right breast biopsy/lumpectomy DVT prophylaxis Plan: Patient will be continued pain management and bowel regimen. Encourage incentive spirometry and ambulation. Currently patient is nothing by mouth except ice chips. Fluoroscopy upper GI series was ordered for tomorrow. Blood pressure medications will be on hold today and follow-up. Continue with other home medications. Will follow-up closely and further recommendations based on the clinical course. CBC and BMP was ordered for tomorrow morning. Thank you for your consult. Time with Patient: Greater than 30
[2020-06-15] MEDS: diphenhydrAMINE 50 MG/ML 1 ML VIAL IVP PRN (20:43)
[2020-06-15] MEDS: HYDROmorphone 1 MG/ML 1 ML SYRINGE IVP PRN (20:43)
[2020-06-15] MEDS: ONDANSETRON 4 MG/2 ML VIAL IVP PRN (20:43)
[2020-06-15] MEDS: ATORVASTATIN 20 MG TAB PO SCH (20:44)
[2020-06-15] MEDS: ENOXAPARIN 40 MG/0.4 ML SYRINGE SQ SCH (20:44)
[2020-06-15] MEDS: MELATONIN 5 MG TABLET PO SCH (20:44)
[2020-06-15] MEDS ORDERED: NON FORMULARY DRUG (Omeprazole 40 MG Capsule.Dr) PO SCH (21:00)
[2020-06-16] MEDS: 0.9% NACL WITH KCL 20 MEQ/L 1,000 ML IV SCH ×2 (00:10→06:42)
[2020-06-16] MEDS: HYDROmorphone 1 MG/ML 1 ML SYRINGE IVP PRN ×2 (02:45→22:25)
[2020-06-16] MEDS: ONDANSETRON 4 MG/2 ML VIAL IVP PRN ×3 (02:45→21:22)
[2020-06-16] MEDS: diphenhydrAMINE 50 MG/ML 1 ML VIAL IVP PRN (02:45)
[2020-06-16] MEDS: LACTATED RINGERS 1,000 ML IV SCH (06:43)
[2020-06-16] MEDS: ALBUTEROL NEBULIZED 2.5 MG/3 ML INHALATION SCH ×5 (07:38→21:41)
[2020-06-16] MEDS: PANTOPRAZOLE 40 MG/10 ML VIAL IV SCH (07:42)
[2020-06-16] MEDS: 1: MVI, ADULT NO.4 WITH VIT K 10 ML, THIAMINE 100 MG, FOLIC ACID 1 MG, POTASSIUM CHLORID IV SCH ×12 (08:01→17:41)
[2020-06-16] MEDS: HYOSCYAMINE ORAL DROPS 1.875 MG/15 ML BOTTLE PO PRN ×2 (08:04→17:42)
--- NOTE | 2020-06-16 09:05 | FL ---
EXAMINATION TYPE: FL UGI DATE OF EXAM: 06/16/2020 LIMITED UGI: CLINICAL HISTORY: Morbid Obesity, gastric sleeve surgery yesterday. TECHNIQUE: Limited UGI-esophagram is performed utilizing 20 oz of Isovue. A total of 34 seconds of f luoroscopic time was utilized during procedure and 21 images obtained. COMPARISON: CT abdomen and pelvis January 27, 2020 FINDINGS: The patient swallowed contrast without difficulty or delay. Esophageal peristalsis and mo tility are satisfactory. There is good flow of contrast along the diaphragmatic hiatus into proximal stomach through proximal anastomosis and subsequent flow into gastric sleeve. There is mild delay in flow from distal sleeve and anastomosis into pylorus and duodenal sweep. Patient remains asymptomati c. There is no evidence of contrast extravasation to suggest leak. IMPRESSION: No evidence of leak or significant obstruction status post recent gastric sleeve surgery yesterday.
[2020-06-16] MEDS: ENOXAPARIN 40 MG/0.4 ML SYRINGE SQ SCH ×2 (09:20→21:23)
[2020-06-16 09:46] LABS: Basophils # (A) 0.01 X 10*3/uL (0.00-0.10); Basophils % (A) 0.1 %; Eosinophils # (A) 0 X 10*3/uL (0.04-0.35); Eosinophils % (A) 0 %; HGB 13.2 g/dL (12.0-15.0); Lymphocytes # (A) 1.34 X 10*3/uL (0.90-5.00); Lymphocytes % (A) 10.6 %; MCH 29.7 pg (27.0-32.0); MCHC 33.8 g/dL (32.0-37.0); MCV 87.6 fL (80.0-97.0); Mean Platelet Volume 9.1 fL (9.5-12.2); Monocytes # (A) 0.59 X 10*3/uL (0.20-1.00); Monocytes % (A) 4.6 %; Neutrophils % (A) 84.3 %; Platelet Count 293 X 10*3/uL (140-440); RBC 4.45 X 10*6/uL (4.10-5.20); RDW 12.4 % (11.5-14.5); WBC 12.69 X 10*3/uL (4.50-10.00)
[2020-06-16 11:02] LABS: African American GFR (CKD) 131.2 (60.0-200.0); Anion Gap 11.6 mmol/L (4.00-12.00); Calcium 8.5 mg/dL (8.7-10.3); Carbon Dioxide 22.4 mmol/L (21.6-31.8); Magnesium 1.9 mg/dL (1.5-2.4); Non-African American GFR(CKD) 113.2 (60.0-200.0); Phosphorus 3.7 mg/dL (2.4-5.1); Potassium 4.5 mmol/L (3.5-5.5)
--- NOTE | 2020-06-16 11:06 | P.PN ---
<Sameera Brand - Last Filed: 06/16/20 11:01> Subjective Progress Note Date: 06/16/20 CHIEF COMPLAINT: Morbid obesity, hypertension and hypercholesterolemia HISTORY OF PRESENT ILLNESS: Patient is status post laparoscopic sleeve gastrectomy and repair of umbilical hernia. Patient is complaining of nausea and pain mostly in the umbilical area. She had one episode of a small amount of vomiting last night. That has resolved. She has been up and ambulating in the hallway. She does not like taking the IV Dilaudid it makes her too sleepy. She is requesting something else for pain. She cannot take [place] she's had reaction to Vicodin in the past causing worsening vomiting. She had her upper GI which showed no evidence of leak or obstruction and she has been started on a bariatric clear liquid diet. Afebrile. WBC 12.69 Hgb 13.2 potassium 4.5 magnesium 1.9 PHYSICAL EXAM: VITAL SIGNS: Reviewed. GENERAL: Well-developed in no acute distress. HEENT: No sclera icterus. Extraocular movements grossly intact. Moist buccal mucosa. Head is atraumatic, normocephalic. ABDOMEN: Soft. Nondistended. Incision sites clean dry and intact NEUROLOGIC: Alert and oriented. Cranial nerves II through XII grossly intact. ASSESSMENT: 1. Morbid obesity status post laparoscopic sleeve gastrectomy and repair of umbilical hernia 2. Hypertension 3. Hypercholesterolemia PLAN: -Start bariatric clear liquid diet -Add Toradol and IV Tylenol for pain -Continue IV fluids and vitamin bag -Continue Zofran as needed for nausea -Encouraged patient to use incentive spirometer and ambulate -GI prophylaxis Protonix and DVT prophylaxis Lovenox Physician Counter Server note has been reviewed by physician. Signing provider agrees with the documented findings, assessment, and plan of care. Objective - Vital Signs Vital signs: Vital Signs Temp 98.4 F 06/16/20 07:20 Pulse 77 06/16/20 07:50 Resp 18 06/16/20 09:50 BP 150/83 06/16/20 07:20 Pulse Ox 97 06/16/20 10:54 Intake & Output 06/15/20 06/16/20 06/16/20 18:59 06:59 18:59 Intake Total 2200 Output Total 10 Balance 2190 Weight 98 kg Intake: IV 2200 Output: Estimated Blood Loss 10 Other: Voiding Method Toilet Toilet # Voids 1 - Labs CBC & Chem 7: 06/16/20 06:05 Labs: Abnormal Lab Results - Last 24 Hours (Table) 06/16/20 Range/Units 06:05 WBC 12.69 H (4.50-10.00) X 10*3/uL MPV 9.1 L (9.5-12.2) fL Immature Gran # 0.05 H (0.00-0.04) X 10*3/uL Neutrophils # 10.70 H (1.80-7.70) X 10*3/uL Eosinophils # 0 L (0.04-0.35) X 10*3/uL <CiscoDavid - Last Filed: 06/16/20 16:47> Subjective As above. Patient says her pain is improving. Labs noted. Says she is ALLERGIC to Vicodin but can tolerate Tylenol with codeine. We'll start that oral medication. Continue bariatric liquids. Upper GI noted. Possible discharge tomorrow. Objective - Vital Signs Vital signs: Vital Signs Temp 98.4 F 06/16/20 13:00 Pulse 78 06/16/20 13:00 Resp 17 06/16/20 13:00 BP 139/73 06/16/20 13:00 Pulse Ox 97 06/16/20 13:00 Intake & Output 06/15/20 06/16/20 06/16/20 18:59 06:59 18:59 Intake Total 2200 300 Output Total 10 Balance 2190 300 Weight 98 kg 98 kg Intake: IV 2200 Oral 300 Output: Estimated Blood Loss 10 Other: Voiding Method Toilet Toilet # Voids 1 - Labs CBC & Chem 7: 06/16/20 06:05 06/16/20 06:05 Labs: Abnormal Lab Results - Last 24 Hours (Table) 06/16/20 06/16/20 Range/Units 06:05 06:05 WBC 12.69 H (4.50-10.00) X 10*3/uL MPV 9.1 L (9.5-12.2) fL Immature Gran # 0.05 H (0.00-0.04) X 10*3/uL Neutrophils # 10.70 H (1.80-7.70) X 10*3/uL Eosinophils # 0 L (0.04-0.35) X 10*3/uL Sodium 134 L (135-145) mmol/L BUN 7.0 L (9.0-27.0) mg/dL Calcium 8.5 L (8.7-10.3) mg/dL Assessment and Plan (1) Obesity (BMI 30-39.9) Current Visit: No Status: Acute Code(s): E66.9 - OBESITY, UNSPECIFIED SNOMED Code(s): 359215597
[2020-06-16] MEDS: KETOROLAC 15 MG/ML 1 ML VIAL IVP SCH ×2 (11:22→17:40)
[2020-06-16] MEDS: ACETAMINOPHEN IV (For NPO) 1,000 MG in EMPTY BAG 1 BAG IVPB SCH ×2 (11:30→17:41)
[2020-06-16 14:15] VITALS: BMI 37.0
--- NOTE | 2020-06-16 16:38 | P.PN ---
Subjective Progress Note Date: 06/16/20 - Reason for Consult Consult date: 06/15/20 Medical management - Chief Complaint Status post sleeve gastrectomy and repair of umbilical hernia. - History of Present Illness Patient is a 40-year-old female with a known history of hypertension, hyperlipidemia, GERD and osteoarthritis, history of gout and morbid obesity was admitted to hospital was admitted to the hospital for laparoscopic sleeve gastrectomy and elevated off umbilical hernia. Patient is still drowsy but awake alert and oriented. Patient's family member is at bedside. Currently complains of bloating sensation and abdominal discomfort. No complaints of chest pain or shortness of breath. No fever no chills. No headache or dizziness or lightheadedness. Blood pressure is 117/77 mmHg and heart rate 87. 06/16/2020 Patient is seen and evaluated and follow-up currently sitting up in the chair experiencing some nausea and abdominal discomfort. Just given some Zofran and states is feeling better. Patient is started on bariatric diet although not tolerating very well due to nausea. Patient continues to have abdominal bloating and discomfort noted at the surgical site. She denies passing gas or having bowel movements and states she is just burping. Blood pressure slightly elevated and will resume home medication lisinopril. Incentive spirometer ordered and instructed to continue using at least 10 times every hour while awake. Patient also instructed to increase activity as tolerated. Review of systems: Constitutional: No reports of fatigue, fever, or chills Cardiovascular: No reports of chest pain or palpitations Respiratory: No reports of shortness of breath or cough GI: Reports nausea, reports of vomiting, or diarrhea, denies gas or bowel movement today, reports abdominal discomfort and tenderness noted at the surgi kalina site : No reports of dysuria or retention Neurovascular: No reports of weakness or numbness All medications have been reviewed Objective - Vital Signs Vital signs: Vital Signs Temp 98.4 F 06/16/20 13:00 Pulse 78 06/16/20 13:00 Resp 17 06/16/20 13:00 BP 139/73 06/16/20 13:00 Pulse Ox 97 06/16/20 13:00 Intake & Output 06/15/20 06/16/20 06/16/20 18:59 06:59 18:59 Intake Total 2200 300 Output Total 10 Balance 2190 300 Weight 98 kg 98 kg Intake: IV 2200 Oral 300 Output: Estimated Blood Loss 10 Other: Voiding Method Toilet Toilet # Voids 1 - Exam Patient is sitting up in the chair, lightly uncomfortable abdominal discomfort nausea, no acute distress, awake alert and oriented.. HEENT: Normocephalic. Neck is supple. Pupils reactive. Nostrils clear. Oral cavity is moist. Ears reveal no drainage. Neck reveals no JVD, carotid bruits, or thyromegaly. CHEST EXAMINATION: Trachea is central. Symmetrical expansion. Lung hart clear to auscultation and percussion. CARDIAC: Normal S1, S2 with no gallops. No murmurs ABDOMEN: Soft. Tenderness noted. Bowel sounds diminished. No organomegaly. No abdominal bruits. Extremities: reveal no edema. No clubbing or cyanosis Neurologically awake, alert, oriented x3 with well-coordinated movements. No focal deficits noted Skin: No rash or skin lesions. Psychiatric: Cooperative. Non-suicidal Musculoskeletal: No joint swelling or deformity. Normal range of motion. - Labs CBC & Chem 7: 06/16/20 06:05 06/16/20 06:05 Labs: Abnormal Lab Results - Last 24 Hours (Table) 06/16/20 06/16/20 Range/Units 06:05 06:05 WBC 12.69 H (4.50-10.00) X 10*3/uL MPV 9.1 L (9.5-12.2) fL Immature Gran # 0.05 H (0.00-0.04) X 10*3/uL Neutrophils # 10.70 H (1.80-7.70) X 10*3/uL Eosinophils # 0 L (0.04-0.35) X 10*3/uL Sodium 134 L (135-145) mmol/L BUN 7.0 L (9.0-27.0) mg/dL Calcium 8.5 L (8.7-10.3) mg/dL Assessment and Plan Assessment: Status post sleeve gastrectomy and repair of umbilical hernia. Morbid obesity with BMI 37.1 Hypertension, will resume home medication Hyperlipidemia GERD History of right breast biopsy/lumpectomy DVT prophylaxis Plan: Patient will be continued pain management and bowel regimen. Encourage incentive spirometry and ambulation. Currently patient started on bariatric clear liquid diet by surgery. She continues with nausea and abdominal discomfort. Fluoroscopy upper GI series done today showing no evidence of leak or significant obstruction status post recent gastric sleeve surgery. Blood pressure medications lisinopril will be resumed. Continue with other home medications. Will follow-up closely and further recommendations based on the clinical course. WBC slightly elevated at 12.69 most likely reactive, hemoglobin is 13.2, sodium is 134, potassium is 4.5, current creatinine is 0.6, and magnesium is 1.9. Continue with IV fluids as well as patient continues to have nausea and instructed to slowly advance with diet per surgical recommenda tions and as tolerated. Zofran as needed. Thank you for this consult and will continue to follow along with you during hospitalization .
[2020-06-16] MEDS ORDERED: ACET/COD 120MG/12MG LIQ 5ML CUP PO PRN (16:46)
[2020-06-16] MEDS: SIMETHICONE 40 MG/0.6 ML DROPS 2,000 MG/30 ML BOTTLE PO PRN (17:42)
[2020-06-16] MEDS ORDERED: lisinopriL 10 MG TAB PO SCH (21:00)
[2020-06-16] MEDS: ATORVASTATIN 20 MG TAB PO SCH ×2 (21:22→21:34)
[2020-06-16] MEDS: MELATONIN 5 MG TABLET PO SCH (21:22)
[2020-06-17] MEDS: ACETAMINOPHEN IV (For NPO) 1,000 MG in EMPTY BAG 1 BAG IVPB SCH ×2 (00:16→07:27)
[2020-06-17] MEDS: KETOROLAC 15 MG/ML 1 ML VIAL IVP SCH ×3 (00:21→13:40)
[2020-06-17] MEDS: 1: MVI, ADULT NO.4 WITH VIT K 10 ML, THIAMINE 100 MG, FOLIC ACID 1 MG, POTASSIUM CHLORID IV SCH ×6 (03:00)
[2020-06-17] MEDS: ONDANSETRON 4 MG/2 ML VIAL IVP PRN (04:39)
[2020-06-17] MEDS: SIMETHICONE 40 MG/0.6 ML DROPS 2,000 MG/30 ML BOTTLE PO PRN (04:40)
[2020-06-17] MEDS: LACTATED RINGERS 1,000 ML IV SCH (05:56)
[2020-06-17] MEDS ORDERED: bisacodyL 5 MG TABLET.DR PO PRN (08:00)
[2020-06-17 09:00] VITALS: BP 142/89; RESP 16; TEMP 97.9
[2020-06-17] MEDS: ALBUTEROL NEBULIZED 2.5 MG/3 ML INHALATION SCH (09:05)
[2020-06-17] MEDS: PANTOPRAZOLE 40 MG/10 ML VIAL IV SCH (09:13)
[2020-06-17] MEDS: ENOXAPARIN 40 MG/0.4 ML SYRINGE SQ SCH (09:13)
[2020-06-17 09:20] VITALS: PULSE 89
[2020-06-17] MEDS ORDERED: ALBUTEROL NEBULIZED 2.5 MG/3 ML INHALATION PRN (10:23)
[2020-06-17 11:02] LABS: Basophils # (A) 0.02 X 10*3/uL (0.00-0.10); Basophils % (A) 0.2 %; Eosinophils # (A) 0.05 X 10*3/uL (0.04-0.35); Eosinophils % (A) 0.5 %; HCT 38.6 % (37.2-46.3); HGB 12.5 g/dL (12.0-15.0); Lymphocytes # (A) 1.41 X 10*3/uL (0.90-5.00); Lymphocytes % (A) 14.2 %; MCH 29.5 pg (27.0-32.0); MCHC 32.4 g/dL (32.0-37.0); Mean Platelet Volume 9.1 fL (9.5-12.2); Monocytes # (A) 0.55 X 10*3/uL (0.20-1.00); Monocytes % (A) 5.5 %; Neutrophils # (A) 7.88 X 10*3/uL (1.80-7.70); Neutrophils % (A) 79.2 %; Platelet Count 259 X 10*3/uL (140-440); RBC 4.24 X 10*6/uL (4.10-5.20); RDW 12.8 % (11.5-14.5); WBC 9.95 X 10*3/uL (4.50-10.00)
--- NOTE | 2020-06-17 12:02 | P.DS ---
Providers Date of admission: 06/15/20 09:07 Expected date of discharge: 06/17/20 Attending physician: David Peck Consults: 06/15/20 14:44 Consult Physician Routine Consulting Provider: Carol Maxwell Consult Reason/Comments: med mgmt Do you want consulting provider notified?: Yes Primary care physician: Rebecca Lawrence - Discharge Diagnosis(es) (1) Obesity (BMI 30-39.9) Current Visit: No Status: Acute Hospital Course: Patient admitted electively for sleeve gastrectomy. Postoperatively he has done well. Upper GI showed no evidence of leak or obstruction. White blood cell count normal. Vital signs are stable. Abdomen soft nontender nondistended, incisions clean and dry. She would like to go home. Tolerating good volume of liquids. September discharge. Follow-up one week. Plan - Discharge Summary Discharge Rx Participant: Yes New Discharge Prescriptions: No Action Multivitamins, Thera [Theragran] 1 each PO HS lisinopriL [Zestril] 10 mg PO HS Rosuvastatin [Crestor] 10 mg PO HS Omeprazole [PriLOSEC] 20 mg PO HS Norethindrone-E.estradiol-Iron [Aurovela 24 Fe 1 mg-20 Mcg Tab] 1 each PO HS Melatonin 10 mg PO HS Discharge Medication List Multivitamins, Thera [Theragran] 1 each PO HS 10/13/14 [History] Rosuvastatin [Crestor] 10 mg PO HS 11/14/19 [History] lisinopriL [Zestril] 10 mg PO HS 11/14/19 [History] Omeprazole [PriLOSEC] 20 mg PO HS 03/13/20 [History] Melatonin 10 mg PO HS 06/09/20 [History] Norethindrone-E.estradiol-Iron [Aurovela 24 Fe 1 mg-20 Mcg Tab] 1 each PO HS 06/09/20 [History]
--- NOTE | 2020-06-17 13:55 | P.PN ---
Subjective Progress Note Date: 06/17/20 - Reason for Consult Consult date: 06/15/20 Medical management - Chief Complaint Status post sleeve gastrectomy and repair of umbilical hernia. - History of Present Illness Patient is a 40-year-old female with a known history of hypertension, hyperlipidemia, GERD and osteoarthritis, history of gout and morbid obesity was admitted to hospital was admitted to the hospital for laparoscopic sleeve gastrectomy and elevated off umbilical hernia. Patient is still drowsy but awake alert and oriented. Patient's family member is at bedside. Currently complains of bloating sensation and abdominal discomfort. No complaints of chest pain or shortness of breath. No fever no chills. No headache or dizziness or lightheadedness. Blood pressure is 117/77 mmHg and heart rate 87. 06/16/2020 Patient is seen and evaluated and follow-up currently sitting up in the chair experiencing some nausea and abdominal discomfort. Just given some Zofran and states is feeling better. Patient is started on bariatric diet although not tolerating very well due to nausea. Patient continues to have abdominal bloating and discomfort noted at the surgical site. She denies passing gas or having bowel movements and states she is just burping. Blood pressure slightly elevated and will resume home medication lisinopril. Incentive spirometer ordered and instructed to continue using at least 10 times every hour while awake. Patient also instructed to increase activity as tolerated. 06/17/2020 Patient is seen this morning states she is feeling much better and anticipating going home today. Denies any nausea or vomiting. Patient states she is passing gas although no reports of bowel movements at this time. Patient is tolerating bariatric clear liquid diet and instructed the patient to continue with strict dietary guidelines per surgical recommendations. Patient okay to resume home medications for blood pressure although discussed with the patient about follow- up about cholesterol medications and also discussing with surgery about medications to avoid status post sleeve gastrectomy. Review of systems: Constitutional: No reports of fatigue, fever, or chills Cardiovascular: No reports of chest pain or palpitations Respiratory: No reports of shortness of breath or cough GI: No reports of nausea, vomiting, or diarrhea. Reports passing gas but no bowel movements as of yet : No reports of dysuria or retention Neurovascular: No reports of weakness or numbness All medications have been reviewed Objective - Vital Signs Vital signs: Vital Signs Temp 97.9 F 06/17/20 08:00 Pulse 89 06/17/20 09:20 Resp 16 06/17/20 08:00 BP 142/89 06/17/20 08:00 Pulse Ox 97 06/17/20 08:00 Intake & Output 06/16/20 06/17/20 06/17/20 18:59 06:59 18:59 Intake Total 1321.2 Balance 1321.2 Weight 98 kg Intake: Intake, IV Titration 1021.2 Amount Mvi, Adult No.4 with Vit 1021.2 K 10 ml Thiamine 100 mg Folic Acid 1 mg Potassium Chloride 20 meq In Sodium Chloride 0.9% 1, 000 ml @ 100 mls/hr IV . BY DURATION PAKO Rx#: [id number] Oral 300 Other: Voiding Method Toilet Toilet # Voids 4 4 - Exam Patient is sitting up in the chair, no acute distress, awake alert and oriented.. HEENT: Normocephalic. Neck is supple. Pupils reactive. Nostrils clear. Oral cavity is moist. Ears reveal no drainage. Neck reveals no JVD, carotid bruits, or thyromegaly. CHEST EXAMINATION: Trachea is central. Symmetrical expansion. Lung hart clear to auscultation and percussion. CARDIAC: Normal S1, S2 with no gallops. No murmurs ABDOMEN: Soft. Tenderness noted although improved from yesterday. Bowel sounds noted. No organomegaly. No abdominal bruits. Abdominal Binder noted Extremities: reveal no edema. No clubbing or cyanosis Neurologically awake, alert, oriented x3 with well-coordinated movements. No focal deficits noted Skin: No rash or skin lesions. Psychiatric: Cooperative. Non-suicidal Musculoskeletal: No joint swelling or deformity. Normal range of motion. - Labs CBC & Chem 7: 06/17/20 06:51 06/16/20 06:05 Labs: Abnormal Lab Results - Last 24 Hours (Table) 06/16/20 06/16/20 Range/Units 06:05 06:05 WBC 12.69 H (4.50-10.00) X 10*3/uL MPV 9.1 L (9.5-12.2) fL Immature Gran # 0.05 H (0.00-0.04) X 10*3/uL Neutrophils # 10.70 H (1.80-7.70) X 10*3/uL Eosinophils # 0 L (0.04-0.35) X 10*3/uL Sodium 134 L (135-145) mmol/L BUN 7.0 L (9.0-27.0) mg/dL Calcium 8.5 L (8.7-10.3) mg/dL Assessment and Plan Assessment: Status post sleeve gastrectomy and repair of umbilical hernia. Morbid obesity with BMI 37.1 Mild leukocytosis most likely reactive, improved Hypertension, will resume home medication Hyperlipidemia GERD History of right breast biopsy/lumpectomy DVT prophylaxis Plan: Patient will be continued pain management and bowel regimen. Encourage incentive spirometry and ambulation. Currently patient started on bariatric clear liquid diet by surgery. Denies any nausea or vomiting today. Tolerating bariatric clear liquids much better and discussed with the patient about maintaining strict dietary guidelines per surgery recommendations. Will follow- up closely and further recommendations based on the clinical course. WBC normalized and is 9.95 today, hemoglobin is 12.5. Patient reports to passing gas although no reports of bowel movements at this time. Discussed with patient in detail about keeping a diary of blood pressure readings for primary care follow-up and discussing with surgery about dietary recommendations along with medications to avoid status post sleeve gastrectomy. She states she is being discharged today. Thank you for this consult and will continue to follow along with you during hospitalization .
== END 2020-06-17 13:47 | disposition home or self-care (01) | DRG 621 ==
LOC: 2ORMAIN 09:07 → 4SSUR 14:51
PROVIDERS: ADMIT Surgery; ATTEND Surgery
PROC: 0WQF4ZZ Repair Abdominal Wall, Percutaneous Endoscopic Approach (ICD-10-PCS; 2020-06-15)
PROC: 0DB64Z3 Excision of Stomach, Percutaneous Endoscopic Approach, Vertical (ICD-10-PCS; principal; 2020-06-15 11:05)
DX: E66.01 Morbid (severe) obesity due to excess calories (principal); K42.9 Umbilical hernia without obstruction or gangrene; E78.00 Pure hypercholesterolemia, unspecified; I10 Essential (primary) hypertension; K21.9 Gastro-esophageal reflux disease without esophagitis; K29.70 Gastritis, unspecified, without bleeding; K31.7 Polyp of stomach and duodenum; M10.9 Gout, unspecified; E78.5 Hyperlipidemia, unspecified; M19.90 Unspecified osteoarthritis, unspecified site; D72.829 Elevated white blood cell count, unspecified; Z68.37 Body mass index [BMI] 37.0-37.9, adult; Z79.899 Other long term (current) drug therapy; Z98.890 Other specified postprocedural states; Z71.3 Dietary counseling and surveillance; Z88.1 Allergy status to other antibiotic agents; Z88.5 Allergy status to narcotic agent
CPT/HCPCS: 74240; 80051; 81025; 82310; 82565; 83735; 84100; 84520; 85025; 88307; 94640; 94760

== ENCOUNTER → 2020-06-19 | Outpatient (CLI) | payer BC ==
[2020-06-19 11:28] VITALS: BP 125/78; PULSE 103; TEMP 97.9; BMI 35.6
== END | disposition home or self-care (01) ==
LOC: BARWHC3 09:59
PROVIDERS: ATTEND Surgery
DX: E66.01 Morbid (severe) obesity due to excess calories (principal); Z68.35 Body mass index [BMI] 35.0-35.9, adult; K21.9 Gastro-esophageal reflux disease without esophagitis; I10 Essential (primary) hypertension; E78.5 Hyperlipidemia, unspecified
CPT/HCPCS: 99211

== ENCOUNTER → 2020-06-30 | Outpatient (CLI) | payer BC ==
[2020-06-30 14:08] VITALS: BP 115/82; PULSE 121; RESP 16; TEMP 98; BMI 34.2
--- NOTE | 2020-06-30 17:14 | P.BASOAP ---
Subjective Progress Note Date: 06/30/20 Principal diagnosis: Morbid obesity Patient returns for recheck. Doing well at this time. Sleeve performed 06/15. States her binder helped quite a bit. No pain postoperatively. Denies heartburn. Says her heart rate is always elevated. A pounds weight loss in the last 11 days. Taking omeprazole daily. Objective - Vital Signs Vital signs: Vital Signs Temp 98 F 06/30/20 14:05 Pulse 121 H 06/30/20 14:05 Resp 16 06/30/20 14:05 BP 115/82 06/30/20 14:05 Pulse Ox Intake & Output 06/29/20 06/30/20 06/30/20 18:59 06:59 18:59 Weight 92.079 kg - Exam Abdomen: Soft, nondistended, incisions clean and dry Assessment/Plan (1) Obesity (BMI 30-39.9) Narrative/Plan: Patient doing well postoperatively. Patient will see the dietitian today. Follow-up 2 weeks. Check one month labs at that time. Continue antiacids. Plan: Date: 06/30/20 Initial Weight: 98.543 kg Initial BMI: 36.7 Current Weight: 92.079 kg Current BMI: 34.2 Type of Surgery: Vertical Sleeve Gastrectomy Total Volume in Band: Previous Volume: Volume Removed: Volume Added: Band Size:
== END | disposition home or self-care (01) ==
LOC: BARWHC3 13:33
PROVIDERS: ATTEND Surgery
DX: E66.01 Morbid (severe) obesity due to excess calories (principal); Z68.30 Body mass index [BMI] 30.0-30.9, adult; Z98.84 Bariatric surgery status
CPT/HCPCS: 97803; 99211

== ENCOUNTER → 2020-07-14 | Outpatient (CLI) | payer BC ==
[2020-07-14 14:09] VITALS: BP 131/83; PULSE 86; RESP 16; TEMP 98.4; BMI 32.1
[2020-07-14 15:00] LABS: HCT 40.5 % (34.0-46.0); HGB 13.8 gm/dL (11.4-16.0); MCH 29.7 pg (25.0-35.0); MCHC 34.2 g/dL (31.0-37.0); MCV 86.7 fL (80.0-100.0); Mean Platelet Volume 7.1; Platelet Count 261 k/uL (150-450); RBC 4.66 m/uL (3.80-5.40); RDW 13.6 % (11.5-15.5); WBC 6.5 k/uL (3.8-10.6)
--- NOTE | 2020-07-14 15:16 | P.BASOAP ---
Subjective Progress Note Date: 07/14/20 Principal diagnosis: Morbid obesity Patient returns for recheck. Underwent sleeve gastrectomy 1 month ago. Has had some loose stools 3-4 times per day recently. She has lost 7 pounds since her last visit. She is walking quite a bit. No pain. Minimal reflux symptoms. Objective - Vital Signs Vital signs: Vital Signs Temp 98.4 F 07/14/20 14:06 Pulse 86 07/14/20 14:06 Resp 16 07/14/20 14:06 BP 131/83 07/14/20 14:06 Pulse Ox Intake & Output 07/13/20 07/14/20 07/14/20 18:59 06:59 18:59 Weight 88.904 kg - Exam Abdomen: Soft, nontender, nondistended, incisions clean and dry - Labs CBC & Chem 7: 07/14/20 14:45 Assessment/Plan (1) Obesity (BMI 30-39.9) Narrative/Plan: Patient doing well at this time. Continue increasing activity. Patient will start a trial of probiotics for her loose stools. She also is considering dropping back down to 20 mg daily on her antiacid therapy. If diarrhea persists patient will try fiber supplementation. We'll check one month labs at this time. Follow-up 4-6 weeks. Plan: Date: 07/14/20 Initial Weight: 98.543 kg Initial BMI: 35.6 Current Weight: 88.904 kg Current BMI: 32.1 Type of Surgery: Vertical Sleeve Gastrectomy Total Volume in Band: Previous Volume: Volume Removed: Volume Added: Band Size:
[2020-07-14 19:48] LABS: African American GFR (CKD) 124.7 (60.0-200.0); Albumin 4.5 g/dL (3.80-4.90); Albumin/Globulin Ratio 2.37 (1.60-3.17); BUN/Creat Ratio 14.29 Ratio (12.00-20.00); Calcium 9.6 mg/dL (8.7-10.3); Globulin 1.9 g/dL (1.6-3.3); Non-African American GFR(CKD) 107.6 (60.0-200.0); Potassium 3.7 mmol/L (3.5-5.5); Total Bilirubin 0.8 mg/dL (0.2-1.2); Total Protein 6.4 g/dL (6.2-8.2)
[2020-07-14 20:13] LABS: Folate, Serum 16.9 ng/mL
== END ==
LOC: BARWHC3 13:25
PROVIDERS: ATTEND Surgery
DX: E66.01 Morbid (severe) obesity due to excess calories (principal); Z68.35 Body mass index [BMI] 35.0-35.9, adult
CPT/HCPCS: 36415; 80053; 82306; 82607; 82746; 83540; 84425; 85027; 97803; 99211

== ENCOUNTER → 2020-08-11 | Outpatient (CLI) | payer BC ==
[2020-08-11 11:54] VITALS: BP 123/84; PULSE 86; RESP 18; TEMP 98.2; BMI 31.6
--- NOTE | 2020-08-11 11:56 | P.BASOAP ---
Subjective Progress Note Date: 08/11/20 Principal diagnosis: Morbid obesity Patient returns for reevaluation. Doing well since last visit. Diarrhea has resolved. She is taking 20 mg omeprazole daily. Still taking probiotics. She has lost 9 pounds. Her blood pressure medications were decreased. No nausea or vomiting. One month labs were checked last visit. ALT was slightly elevated although decreased from preop. Objective - Vital Signs Vital signs: Vital Signs Temp 98.2 F 08/11/20 11:47 Pulse 86 08/11/20 11:47 Resp 18 08/11/20 11:47 BP 123/84 08/11/20 11:47 Pulse Ox Intake & Output 08/10/20 08/11/20 08/11/20 18:59 06:59 18:59 Weight 84.822 kg - Exam Abdomen: Soft, nontender, nondistended Assessment/Plan (1) Obesity (BMI 30-39.9) Narrative/Plan: Patient doing well at this time. Continue dietary and exercise regimen. Follow-up 6 weeks. Check 3 months labs at that time. Plan: Date: 08/11/20 Initial Weight: 98.543 kg Initial BMI: 36.7 Current Weight: 84.822 kg Current BMI: 31.6 Type of Surgery: Total Volume in Band: Previous Volume: Volume Removed: Volume Added: Band Size:
== END ==
LOC: BARWHC3 11:27
PROVIDERS: ATTEND Surgery
DX: E66.01 Morbid (severe) obesity due to excess calories (principal); Z68.31 Body mass index [BMI] 31.0-31.9, adult
CPT/HCPCS: 99211

== ENCOUNTER → 2020-10-06 | Outpatient (CLI) | payer BC ==
--- NOTE | 2020-10-06 11:00 | P.BASOAP ---
Subjective Progress Note Date: 10/06/20 Principal diagnosis: Morbid obesity Patient returns for recheck. Doing well since last visit. She has lost 16 pounds since her visit in August. Denies heartburn. No nausea or vomiting. Diarrhea has mostly resolved. Still has episodes of sneezing when she is overly full. She has been exercising more. She takes antacids on a daily basis. Objective - Exam Abdomen: Soft, nontender, nondistended Assessment/Plan (1) Obesity (BMI 30-39.9) Narrative/Plan: Patient doing well at this time. Try antiacid therapy every other day at this time. Check 3 months labs. Follow-up 6-8 weeks. Plan: Date: Initial Weight: 98.543 kg Initial BMI: Current Weight: Current BMI: Type of Surgery: Total Volume in Band: Previous Volume: Volume Removed: Volume Added: Band Size:
[2020-10-06 11:15] VITALS: BP 113/74; PULSE 70; TEMP 98.2; BMI 28.9
[2020-10-06 13:26] LABS: HCT 40.3 % (34.0-46.0); HGB 13.8 gm/dL (11.4-16.0); MCH 30.9 pg (25.0-35.0); MCHC 34.3 g/dL (31.0-37.0); MCV 90.3 fL (80.0-100.0); Mean Platelet Volume 7.1; Platelet Count 230 k/uL (150-450); RBC 4.46 m/uL (3.80-5.40); RDW 12.3 % (11.5-15.5); WBC 6.7 k/uL (3.8-10.6)
[2020-10-06 22:33] LABS: African American GFR (CKD) 124.7 (60.0-200.0); Albumin 4.6 g/dL (3.80-4.90); Albumin/Globulin Ratio 2.3 (1.60-3.17); Anion Gap 14.1 mmol/L (4.00-12.00); BUN/Creat Ratio 12.86 Ratio (12.00-20.00); Calcium 9.5 mg/dL (8.7-10.3); Carbon Dioxide 21.9 mmol/L (21.6-31.8); Non-African American GFR(CKD) 107.6 (60.0-200.0); Total Protein 6.6 g/dL (6.2-8.2)
[2020-10-06 22:48] LABS: Folate, Serum 21.4 ng/mL
== END ==
LOC: BARWHC3 10:27
PROVIDERS: ATTEND Surgery
DX: E66.01 Morbid (severe) obesity due to excess calories (principal); Z68.28 Body mass index [BMI] 28.0-28.9, adult; Z88.1 Allergy status to other antibiotic agents; Z88.5 Allergy status to narcotic agent
CPT/HCPCS: 80053; 82306; 82607; 82746; 83540; 84425; 85027; 99211

== ENCOUNTER → 2020-12-08 | Outpatient (CLI) | payer BC ==
[2020-12-08 14:28] VITALS: BP 112/78; PULSE 65; TEMP 98; BMI 26.3
--- NOTE | 2020-12-08 16:20 | P.BASOAP ---
Subjective Progress Note Date: 12/08/20 Principal diagnosis: Morbid obesity Patient returns for recheck. She is 6 months post sleeve gastrectomy. Last seen October 06. Applications still having issues with nasal drainage and sneezing when she is overly full. She has no reflux despite taking antiacids every other day. She decreased her antihypertensives further. Last set of labs were from October 06. Those labs look good. She has lost 15 pounds since her last visit. Objective - Vital Signs Vital signs: Vital Signs Temp 98 F 12/08/20 14:26 Pulse 65 12/08/20 14:26 Resp BP 112/78 12/08/20 14:26 Pulse Ox Intake & Output 12/07/20 12/08/20 12/08/20 18:59 06:59 18:59 Weight 70.76 kg - Exam Abdomen: Soft, nontender, nondistended Assessment/Plan (1) Obesity (BMI 30-39.9) Narrative/Plan: Patient is doing well post sleeve gastrectomy. We'll order repeat labs for early January. We'll stop antiacids at this time. Continue increasing exercise. Patient states she will try running again. Follow-up 6-8 weeks. Plan: Date: 12/08/20 Initial Weight: 98.543 kg Initial BMI: 36.7 Current Weight: 70.76 kg Current BMI: 26.3 Type of Surgery: Total Volume in Band: Previous Volume: Volume Removed: Volume Added: Band Size:
== END | disposition home or self-care (01) ==
LOC: BARWHC3 12:43
PROVIDERS: ATTEND Surgery
DX: E66.01 Morbid (severe) obesity due to excess calories (principal); Z68.26 Body mass index [BMI] 26.0-26.9, adult
CPT/HCPCS: 99211

== ENCOUNTER → 2021-02-01 | Outpatient (CLI) | payer BC ==
--- NOTE | 2021-02-02 09:37 | MM ---
Reason for exam: screening (asymptomatic). Last mammogram was performed 1 year ago. History: Excisional biopsy of the right breast, October 2014. Benign US biopsy breast VAD RT of the right breast, July 22, 2014. Taking hormonal contraceptives for 19 years. Physical Findings: A clinical breast exam by your physician is recommended on an annual basis and results should be correlated with mammographic findings. MG 3D Screening Mammo W/Cad Bilateral CC and MLO view(s) were taken. XCCL view(s) were taken of the right breast. Prior study comparison: January 30, 2020, bilateral MG 3d screening mammo w/cad. June 30, 2016, bilateral MG 3d diag mammo w/cad [facility]. The breast tissue is heterogeneously dense. This may lower the sensitivity of mammography. There is no discrete abnormality. No significant changes when compared with prior studies. ASSESSMENT: Negative, BI-RAD 1 RECOMMENDATION: Routine screening mammogram of both breasts in 1 year.
== END | disposition home or self-care (01) ==
LOC: RADMAMWWP 08:48
PROVIDERS: ATTEND Obstetrics & Gynecology
DX: Z12.31 Encounter for screening mammogram for malignant neoplasm of breast (principal)
CPT/HCPCS: 77063; 77067

== ENCOUNTER → 2021-02-01 | Outpatient (CLI) | payer BC ==
[2021-02-01 17:10] LABS: Basophils # (A) 0.02 X 10*3/uL (0.00-0.10); Basophils % (A) 0.3 %; Eosinophils # (A) 0.08 X 10*3/uL (0.04-0.35); Eosinophils % (A) 1.2 %; HCT 40.4 % (37.2-46.3); HGB 13.3 g/dL (12.0-15.0); Lymphocytes # (A) 1.69 X 10*3/uL (0.90-5.00); Lymphocytes % (A) 25.9 %; MCH 29.9 pg (27.0-32.0); MCHC 32.9 g/dL (32.0-37.0); MCV 90.8 fL (80.0-97.0); Mean Platelet Volume 9.9 fL (9.5-12.2); Monocytes # (A) 0.25 X 10*3/uL (0.20-1.00); Monocytes % (A) 3.8 %; Neutrophils # (A) 4.46 X 10*3/uL (1.80-7.70); Neutrophils % (A) 68.5 %; Platelet Count 265 X 10*3/uL (140-440); RBC 4.45 X 10*6/uL (4.10-5.20); RDW 12.3 % (11.5-14.5); WBC 6.52 X 10*3/uL (4.50-10.00)
[2021-02-01 18:52] LABS: African American GFR (CKD) 124.7 (60.0-200.0); Albumin 4.3 g/dL (3.80-4.90); Albumin/Globulin Ratio 1.95 (1.60-3.17); Anion Gap 13.6 mmol/L (4.00-12.00); BUN/Creat Ratio 17.14 Ratio (12.00-20.00); Calcium 9.2 mg/dL (8.7-10.3); Carbon Dioxide 23.4 mmol/L (21.6-31.8); Chol/HDL Ratio 3.25; Globulin 2.2 g/dL (1.6-3.3); LDL Cholesterol,Calculated 68.4 mg/dL (0.0-131.0); Non-African American GFR(CKD) 107.6 (60.0-200.0); Potassium 4.2 mmol/L (3.5-5.5); Total Bilirubin 1.1 mg/dL (0.2-1.2); Total Protein 6.5 g/dL (6.2-8.2); VLDL Calculation 39.6 mg/dL (5.00-40.00)
[2021-02-01 19:15] LABS: Folate, Serum 12.9 ng/mL
[2021-02-01 20:00] LABS: Hemoglobin A1C 5.4 % (4.0-6.0)
== END | disposition home or self-care (01) ==
LOC: LABWHC1 08:54
PROVIDERS: ATTEND Surgery
DX: E66.01 Morbid (severe) obesity due to excess calories (principal); K90.89 Other intestinal malabsorption; E55.9 Vitamin D deficiency, unspecified; R73.9 Hyperglycemia, unspecified; I10 Essential (primary) hypertension; E78.00 Pure hypercholesterolemia, unspecified
CPT/HCPCS: 36415; 80053; 80061; 82306; 82607; 82746; 83036; 83540; 84425; 85025

== ENCOUNTER → 2021-02-09 | Outpatient (CLI) | payer BC ==
[2021-02-09 13:25] VITALS: BP 122/85; PULSE 86; TEMP 98.1; BMI 24.6
--- NOTE | 2021-02-09 13:51 | P.BASOAP ---
Subjective Progress Note Date: 02/09/21 Principal diagnosis: Morbid obesity Patient returns for 1 month recheck. Last seen 12/08. Doing well since her last visit. She went back to taking her antiacids on Wednesdays and Fridays with good control of her heartburn symptoms. She has lost 10 pounds more. Still sneezing and having a runny nose when she has overly full. She stopped her statin medications. Remains on lisinopril. Labs from 2 weeks ago. Objective - Vital Signs Vital signs: Vital Signs Temp 98.1 F 02/09/21 13:17 Pulse 86 02/09/21 13:17 Resp BP 122/85 02/09/21 13:17 Pulse Ox Intake & Output 02/08/21 02/09/21 02/09/21 18:59 06:59 18:59 Weight 66.224 kg - Exam Abdomen: Soft, nontender, nondistended Assessment/Plan (1) Obesity (BMI 30-39.9) Narrative/Plan: Patient doing well at this time. Continue every other day antiacid therapy. Continue dietary and exercise regimen. Recheck 6 weeks. Plan: Date: 02/09/21 Initial Weight: 98.543 kg Initial BMI: 36.7 Current Weight: 66.224 kg Current BMI: 24.6 Type of Surgery: Total Volume in Band: Previous Volume: Volume Removed: Volume Added: Band Size:
== END ==
LOC: BARWHC3 13:16
PROVIDERS: ATTEND Surgery
DX: E66.01 Morbid (severe) obesity due to excess calories (principal); Z68.30 Body mass index [BMI] 30.0-30.9, adult
CPT/HCPCS: 99211

== ENCOUNTER → 2021-04-13 | Outpatient (CLI) | payer BC ==
[2021-04-13 13:27] VITALS: BP 115/79; PULSE 78; TEMP 98.1; BMI 22.9
--- NOTE | 2021-04-13 13:46 | P.BASOAP ---
Subjective Progress Note Date: 04/13/21 Principal diagnosis: Morbid obesity Patient returns for evaluation. Doing well since last visit. Still taking her antiacids Monday. Having some left knee pain recently. Wondering about whether she can take NSAIDs. She has lost 10 pounds since her last visit. No nausea or vomiting. No pain. Objective - Vital Signs Vital signs: Vital Signs Temp 98.1 F 04/13/21 13:20 Pulse 78 04/13/21 13:20 Resp BP 115/79 04/13/21 13:20 Pulse Ox Intake & Output 04/12/21 04/13/21 04/13/21 18:59 06:59 18:59 Weight 61.689 kg - Exam Abdomen: Soft, nontender, nondistended Assessment/Plan (1) Obesity (BMI 30-39.9) Narrative/Plan: Patient doing well at this time. Continue Monday antiacids. May take Motrin with food 3 times daily recommend at 400-600 mg per dose. Continue dietary and exercise regimen. Follow-up 6-8 weeks. We'll check 1 labs at that time. Plan: Date: 04/13/21 Initial Weight: 98.543 kg Initial BMI: 36.7 Current Weight: 61.689 kg Current BMI: 22.9 Type of Surgery: Total Volume in Band: Previous Volume: Volume Removed: Volume Added: Band Size:
== END | disposition home or self-care (01) ==
LOC: BARWHC3 13:07
PROVIDERS: ATTEND Surgery
DX: E66.01 Morbid (severe) obesity due to excess calories (principal); Z68.30 Body mass index [BMI] 30.0-30.9, adult
CPT/HCPCS: 99211

== ENCOUNTER → 2021-06-08 | Outpatient (CLI) | payer BC ==
[2021-06-08 13:15] VITALS: BP 107/78; PULSE 80; TEMP 97.8; BMI 22.4
--- NOTE | 2021-06-08 13:36 | P.BASOAP ---
Subjective Progress Note Date: 06/08/21 Principal diagnosis: morbid obesity patient returns for reevaluation. Doing well since last visit. This is her 1 year visit. Her knee pain resolved without the use of NSAIDs. Still takes antacids Monday. Lost 3 more pounds. Still feeling somewhat ill from a covid nfection she had 2-3 weeks ago. Otherwise doing well. Objective - Vital Signs Vital signs: Vital Signs Temp 97.8 F 06/08/21 13:13 Pulse 80 06/08/21 13:13 Resp BP 107/78 06/08/21 13:13 Pulse Ox Intake & Output 06/07/21 06/08/21 06/08/21 18:59 06:59 18:59 Weight 60.328 kg - Exam Abdomen: Soft, nontender, nondistended Assessment/Plan (1) Obesity (BMI 30-39.9) Narrative/Plan: patient doing well postoperatively. Continue dietary and exercise regimen. Continue intermittent antiacid use. Follow-up 6 months. Check one year labs at this time. Plan: Date: 06/08/21 Initial Weight: 98.543 kg Initial BMI: 36.7 Current Weight: 60.328 kg Current BMI: 22.4 Type of Surgery: Total Volume in Band: Previous Volume: Volume Removed: Volume Added: Band Size:
== END | disposition home or self-care (01) ==
LOC: BARWHC3 12:36
PROVIDERS: ATTEND Surgery
DX: E66.01 Morbid (severe) obesity due to excess calories (principal); Z68.22 Body mass index [BMI] 22.0-22.9, adult
CPT/HCPCS: 99211

== ENCOUNTER → 2021-07-08 | Outpatient (CLI) | payer BC ==
[2021-07-08 15:03] LABS: HCT 42.2 % (37.2-46.3); HGB 13.9 g/dL (12.0-15.0); MCH 30.2 pg (27.0-32.0); MCHC 32.9 g/dL (32.0-37.0); MCV 91.5 fL (80.0-97.0); Mean Platelet Volume 9.5 fL (9.5-12.2); NRBC Per 100 WBC 0 /100 WBCS (0.0-0.0); Platelet Count 271 X 10*3/uL (140-440); RBC 4.61 X 10*6/uL (4.10-5.20); RDW 12.5 % (11.5-14.5); WBC 5.76 X 10*3/uL (4.50-10.00)
[2021-07-08 15:39] LABS: ALT 16 U/L (8-44); AST 20 U/L (13-35); African American GFR (CKD) 123.9 (60.0-200.0); Albumin 4.5 g/dL (3.8-4.9); Albumin/Globulin Ratio 1.67 (1.60-3.17); Alkaline Phosphatase 54 U/L (41-126); BUN/Creat Ratio 14.71 Ratio (12.00-20.00); Blood Urea Nitrogen 10.3 mg/dL (9.0-27.0); Calcium 9.8 mg/dL (8.7-10.3); Carbon Dioxide 22.6 mmol/L (20.0-27.5); Chloride 100 mmol/L (96-109); Chol/HDL Ratio 4.93 Ratio; Globulin 2.7 g/dL (1.6-3.3); Glucose 81 mg/dL (70-110); Iron 122 ug/dL (50-170); LDL Cholesterol,Calculated 164.5 mg/dL (0.0-131.0); Non-African American GFR(CKD) 106.9 (60.0-200.0); Potassium 4.4 mmol/L (3.5-5.5); Sodium 138 mmol/L (135-145); Total Protein 7.2 g/dL (6.2-8.2)
== END | disposition home or self-care (01) ==
LOC: LABPAT 09:15
PROVIDERS: ATTEND Surgery
DX: E66.01 Morbid (severe) obesity due to excess calories (principal); E89.1 Postprocedural hypoinsulinemia; E55.9 Vitamin D deficiency, unspecified; Z71.3 Dietary counseling and surveillance
CPT/HCPCS: 80053; 80061; 82306; 82607; 82746; 83036; 83540; 84425; 85027

== ENCOUNTER → 2021-11-09 | Outpatient (CLI) | payer BC ==
[2021-11-09 13:09] VITALS: BP 124/79; PULSE 76; TEMP 98; BMI 22.4
--- NOTE | 2021-11-09 13:59 | P.BASOAP ---
Subjective Progress Note Date: 11/09/21 Principal diagnosis: Morbid obesity Patient returns for recheck. Doing well since last visit. Weight has stayed the same at 133. Last seen 06/08. Had 1 year labs checked at the time which looked good. Patient wondering if she can stop taking her oral vitamin B12. Still taking antiacids Monday. No heartburn. Objective - Vital Signs Vital signs: Vital Signs Temp 98 F 11/09/21 13:06 Pulse 76 11/09/21 13:06 Resp BP 124/79 11/09/21 13:06 Pulse Ox FiO2 Intake & Output 11/08/21 11/09/21 11/09/21 18:59 06:59 18:59 Weight 60.328 kg - Exam Abdomen: Soft, nontender, nondistended Assessment/Plan (1) Obesity (BMI 30-39.9) Narrative/Plan: Patient doing well at this time. Consider decreasing PPI frequency or stopping PPI at this time. Continue dietary and exercise regimen. Follow-up 06/2022 for 2 year recheck. Plan: Date: 11/09/21 Initial Weight: 98.543 kg Initial BMI: 36.7 Current Weight: 60.328 kg Current BMI: 22.4 Type of Surgery: Total Volume in Band: Previous Volume: Volume Removed: Volume Added: Band Size:
== END ==
LOC: BARWHC3 12:44
PROVIDERS: ATTEND Surgery
DX: E66.01 Morbid (severe) obesity due to excess calories (principal); Z68.22 Body mass index [BMI] 22.0-22.9, adult; Z88.5 Allergy status to narcotic agent; Z88.8 Allergy status to other drugs, medicaments and biological substances
CPT/HCPCS: 99211

== ENCOUNTER → 2022-02-03 | Outpatient (CLI) | payer BC ==
[2022-02-03 14:43] LABS: Basophils # (A) 0.04 X 10*3/uL (0.00-0.10); Basophils % (A) 0.7 %; Eosinophils # (A) 0.15 X 10*3/uL (0.04-0.35); Eosinophils % (A) 2.5 %; HCT 41.3 % (37.2-46.3); HGB 14.2 g/dL (12.0-15.0); Immature Grans, Automated 0.3 %; Lymphocytes # (A) 1.93 X 10*3/uL (0.90-5.00); Lymphocytes % (A) 31.8 %; MCHC 34.4 g/dL (32.0-37.0); MCV 90.2 fL (80.0-97.0); Mean Platelet Volume 9.2 fL (9.5-12.2); Monocytes # (A) 0.34 X 10*3/uL (0.20-1.00); Monocytes % (A) 5.6 %; NRBC Per 100 WBC 0 /100 WBCS (0.0-0.0); Neutrophils # (A) 3.59 X 10*3/uL (1.80-7.70); Neutrophils % (A) 59.1 %; Platelet Count 249 X 10*3/uL (140-440); RBC 4.58 X 10*6/uL (4.10-5.20); RDW 11.9 % (11.5-14.5); WBC 6.07 X 10*3/uL (4.50-10.00)
[2022-02-03 16:46] LABS: ALT 26 U/L (8-44); AST 22 U/L (13-35); African American GFR (CKD) 125.7 (60.0-200.0); Albumin 4.6 g/dL (3.8-4.9); Albumin/Globulin Ratio 1.78 (1.60-3.17); Alkaline Phosphatase 60 U/L (41-126); BUN/Creat Ratio 16.87 Ratio (12.00-20.00); Blood Urea Nitrogen 11.3 mg/dL (9.0-27.0); Calcium 9.7 mg/dL (8.7-10.3); Carbon Dioxide 25.6 mmol/L (20.0-27.5); Chloride 99 mmol/L (96-109); Chol/HDL Ratio 2.85 Ratio; Globulin 2.6 g/dL (1.6-3.3); Glucose 82 mg/dL (70-110); LDL Cholesterol,Calculated 83.1 mg/dL (0.0-131.0); Non-African American GFR(CKD) 108.4 (60.0-200.0); Potassium 4.3 mmol/L (3.5-5.5); Sodium 137 mmol/L (135-145); Total Protein 7.1 g/dL (6.2-8.2)
--- NOTE | 2022-02-04 09:23 | MM ---
Reason for Exam: Screening (asymptomatic). Last screening mammogram was performed 12 month(s) ago. Patient History: Menarche at age 11. First Full-Term at age 25. Premenopausal. Currently using Hormonal Contraceptives, for 19 years. 10/2014, Excisional Biopsy on the Right side. 07/22/2014, Benign Core Biopsy on the right side. Risk Values: Ceci 5 year model risk: 2.0%. NCI Lifetime model risk: 17.2%. Prior Study Comparison: 06/30/2016 Bilateral Diagnostic Mammogram, [facility]. 01/30/2020 Bilateral Screening Mammogram, [facility]. 02/01/2021 Bilateral Screening Mammogram, [facility]. Tissue Density: The breast tissue is heterogeneously dense. This may lower the sensitivity of mammography. Findings: Analyzed By CAD. Benign-appearing bilateral axillary lymph nodes are redemonstrated. Indeterminate group of calcifications in the right breast middle depth slightly inferior aspect warrants further workup. Overall Assessment: Incomplete: need additional imaging evaluation, BI-RAD 0 Management: Special View Mammogram of the right breast. Return for additional spot magnification and 3-D true lateral view right breast . Electronically signed and approved by: Carter Black M.D.
== END | disposition home or self-care (01) ==
LOC: RADMAMWWP 08:31
PROVIDERS: ATTEND Obstetrics & Gynecology
DX: Z12.31 Encounter for screening mammogram for malignant neoplasm of breast (principal); Z00.01 Encounter for general adult medical examination with abnormal findings; I10 Essential (primary) hypertension; E78.5 Hyperlipidemia, unspecified; K21.9 Gastro-esophageal reflux disease without esophagitis
CPT/HCPCS: 77063; 77067; 80053; 80061; 85025

== ENCOUNTER → 2022-02-11 | Outpatient (CLI) | payer BC ==
--- NOTE | 2022-02-11 08:58 | MM ---
Reason for Exam: Additional evaluation requested from prior study. Last screening mammogram was performed less than 1 month ago. Patient History: Menarche at age 11. First Full-Term at age 25. Premenopausal. Currently using Hormonal Contraceptives, for 19 years. 10/2014, Excisional Biopsy on the Right side. 07/22/2014, Benign Core Biopsy on the right side. Risk Values: Ceci 5 year model risk: 2.0%. NCI Lifetime model risk: 17.2%. Prior Study Comparison: 06/30/2016 Bilateral Diagnostic Mammogram, [facility]. 01/30/2020 Bilateral Screening Mammogram, [facility]. 02/01/2021 Bilateral Screening Mammogram, [facility]. 02/03/2022 Bilateral MG 3D screening mammo w/cad, [facility]. Tissue Density: Right: The breast tissue is heterogeneously dense. This may lower the sensitivity of mammography. Findings: Analyzed By CAD. There are faint clustered fine punctate calcifications in the lower 5-6 o'clock middle position right breast. These are suspicious and biopsy is recommended. In the craniocaudal projection there may be a second group of calcifications just medial to the suspicious calcifications. These are not as clearly identified on the mediolateral views. Overall Assessment: Suspicious, BI-RAD 4 Management: Stereotactic Core Biopsy of the right breast. A negative mammogram report should not preclude additional follow up of suspicious palpable abnormalities. Patient should continue monthly self breast exam. A clinical breast exam by your physician is recommended on an annual basis and results should be correlated with mammographic findings. Electronically signed and approved by: Joseluis Lees D.O. Radiologis
== END | disposition home or self-care (01) ==
LOC: RADMAMWWP 08:15
PROVIDERS: ATTEND Obstetrics & Gynecology
DX: R92.8 Other abnormal and inconclusive findings on diagnostic imaging of breast (principal)
CPT/HCPCS: 77061; 77065

== ENCOUNTER → 2022-02-21 | Day surgery (SDC) | payer BC ==
[2022-02-21 07:31] VITALS: RESP 16; TEMP 98
[2022-02-21 08:27] VITALS: BP 124/77; PULSE 87
--- NOTE | 2022-02-23 13:54 | MM ---
Risk Values: Ceci 5 year model risk: 2.0%. NCI Lifetime model risk: 17.2%. Prior Study Comparison: 02/01/2021 Bilateral Screening Mammogram, [facility]. 02/03/2022 Bilateral MG 3D screening mammo w/cad, [facility]. 02/11/2022 Right MG 3D work up w/cad RT, [facility]. Pathology Description: Location: middle, central. Marker Left Behind. Specimen Radiograph. Approach: CC FB Needle Type: Eviva Cores: 6 Skin Nicks: 1 Gauge: 9 The procedure of stereotactic guided core biopsy was explained to the patient. Benefits, alternatives, and risks were discussed. An informed consent was then obtained. The shortness pathway for biopsy was chosen. Shortness pathway was inferior approach. I performed the localization and procedure. A vacuum assisted biopsy gun was used to obtain multiple core samples. The patient tolerated the procedure well without any immediate complication. The patient was kept in the radiology department for short stay after the procedure and then discharged home in stable condition. Targeted calcifications are identified in specimen mammogram. Post biopsy mammogram shows the clip to appear in satisfactory position relative to the targeted area of concern on the preprocedure images. Impression: SUCCESSFUL, UNCOMPLICATED STEREOTACTIC GUIDED CORE BIOPSY OF AREA OF CONCERN IN THE RIGHT BREAST. Pathology Results: Result: High risk, Atypical ductal hyperplasia. RIGHT BREAST, STEREOTACTIC NEEDLE CORE BIOPSY: Flat epithelial atypia/atypical ductal hyperplasia (FEA/ADH) with calcifications and background fibrocystic changes including sclerosing adenosis with microcalcifications. Overall Assessment: High risk Management: Surgical Consultation of the right breast. Electronically signed and approved by: Stephon Villegas D.O.
== END ==
LOC: RADMAMWWP 07:16
PROVIDERS: ATTEND Surgery
DX: N60.21 Fibroadenosis of right breast (principal); N62 Hypertrophy of breast; R92.1 Mammographic calcification found on diagnostic imaging of breast
CPT/HCPCS: 88305; 19081; A4648; J2001

== ENCOUNTER → 2022-10-27 | Outpatient (CLI) | payer BC ==
[2022-10-27 16:32] LABS: Basophils # (A) 0.03 X 10*3/uL (0.00-0.10); Basophils % (A) 0.6 %; Eosinophils # (A) 0.18 X 10*3/uL (0.04-0.35); Eosinophils % (A) 3.8 %; HCT 40.7 % (37.2-46.3); HGB 13.6 d/dL (12.0-15.0); Lymphocytes # (A) 1.54 X 10*3/uL (0.90-5.00); Lymphocytes % (A) 32.4 %; MCH 30.9 pg (27.0-32.0); MCHC 33.4 d/dL (32.0-37.0); MCV 92.5 FL (80.0-97.0); Mean Platelet Volume 9.7 FL (9.5-12.2); Monocytes # (A) 0.35 X 10*3/uL (0.20-1.00); Monocytes % (A) 7.4 %; NRBC Per 100 WBC 0 X 10*3/uL (0.00-0.01); Neutrophils # (A) 2.65 X 10*3/uL (1.80-7.70); Neutrophils % (A) 55.6 %; Platelet Count 225 X 10*3/uL (140-440); RDW 11.9 % (11.5-14.5); WBC 4.76 X 10*3/uL (4.50-10.00)
== END | disposition home or self-care (01) ==
LOC: LABPAT 08:21
PROVIDERS: ATTEND Obstetrics & Gynecology
DX: Z30.2 Encounter for sterilization (principal); I10 Essential (primary) hypertension; N92.1 Excessive and frequent menstruation with irregular cycle
CPT/HCPCS: 85025; 93005

== ENCOUNTER 2022-11-11 08:12 | Day surgery (SDC) | payer BC ==
[2022-11-03 15:51] VITALS: BMI 23.6
[~2022-11-11 08:12] MED LIST changes: -DEXAMETHASONE SOD PHOSPHATE 4 MG/ML 1 ML VIAL IV ONE; -ENOXAPARIN 40 MG/0.4 ML SYRINGE SQ PRN; -HYDROmorphone 0.5 MG/0.5 ML SYRINGE IVP PRN; -ONDANSETRON 4 MG/2 ML VIAL IVP ONE; +Pre Op ABX Message 1 EACH MISC MISCELLANE ONE
[2022-11-11] MEDS ORDERED: DEXAMETHASONE SOD PHOSPHATE 4 MG/ML 1 ML VIAL IV ONE (10:28)
[2022-11-11] MEDS ORDERED: ONDANSETRON 4 MG/2 ML VIAL IVP ONE (10:28)
[2022-11-11] MEDS ORDERED: HYDROmorphone 0.5 MG/0.5 ML SYRINGE IVP PRN (10:28)
[2022-11-11] MEDS ORDERED: LACTATED RINGERS 1,000 ML IV SCH ×2 (10:28→12:15)
[2022-11-11] MEDS ORDERED: SCOPOLAMINE 1 MG/72 HR PATCH TRANSDERM ONE (10:56)
[2022-11-11] MEDS ORDERED: SUCCINYLCHOLINE CHLORIDE 200 MG/10 ML VIAL IV ONE (11:16)
[2022-11-11] MEDS ORDERED: GLYCOPYRROLATE 0.2 MG/ML 2 ML VIAL ONE (11:16)
[2022-11-11] MEDS ORDERED: MIDAZOLAM 2 MG/2 ML VIAL ONE (11:16)
[2022-11-11] MEDS ORDERED: fentaNYL (PF) 50 MCG/ML 2 ML AMP ONE (11:16)
[2022-11-11] MEDS ORDERED: NEOSTIGMINE 1 MG/ML 10 ML VIAL ONE (11:16)
[2022-11-11] MEDS ORDERED: diphenhydrAMINE 50 MG/ML 1 ML VIAL ONE (11:16)
[2022-11-11] MEDS ORDERED: PROPOFOL 10 MG/ML 20 ML VIAL IV ONE (11:16)
[2022-11-11] MEDS ORDERED: ROCURONIUM 10 MG/ML (5 ML VIAL) IV ONE (11:16)
[2022-11-11] MEDS ORDERED: LIDOCAINE 2% INJ 20 MG/ML (2 ML VIAL) ONE (11:16)
[2022-11-11] MEDS ORDERED: BUPIVACAINE (PF) 0.5% 30 ML VIAL SQ ONE ×2 (11:42→11:50)
[2022-11-11] MEDS ORDERED: Acetaminophen-Codeine 300-30mg TAB PO PRN ×2 (12:10)
[2022-11-11] MEDS ORDERED: METOCLOPRAMIDE 5 MG/ML 2 ML VIAL IVP PRN (12:10)
[2022-11-11] MEDS ORDERED: diphenhydrAMINE 50 MG/ML 1 ML VIAL IVP PRN (12:10)
[2022-11-11] MEDS ORDERED: SIMETHICONE 80 MG CHEWABLE PO PRN (12:10)
[2022-11-11] MEDS ORDERED: ONDANSETRON 4 MG/2 ML VIAL IVP PRN (12:10)
[2022-11-11] MEDS ORDERED: IBUPROFEN 600 MG TAB PO PRN (12:10)
[2022-11-11] MEDS ORDERED: KETOROLAC 15 MG/ML 1 ML VIAL IVP PRN (12:10)
--- NOTE | 2022-11-11 12:19 | P.OP ---
Date of Procedure: 11/11/22 Preoperative Diagnosis: #1. Menometrorrhagia #2. Dysfunctional uterine bleeding #3. Undesired fertility Postoperative Diagnosis: Same Procedure(s) Performed: #1. Laparoscopic bilateral tubal occlusion with Filshie clips #2. Diagnostic hysteroscopy #3. NovaSure endometrial ablation Anesthesia: ERIS Surgeon: Javon Scales Estimated Blood Loss (ml): 5 IV fluids (ml): 500 Urine output (ml): 25 Pathology: none sent Condition: stable Disposition: PACU Operative Findings: Preoperative pelvic examination demonstrated a 4-5 week retroverted mobile normal shaped uterus with normal adnexa bilaterally. Intraoperatively, these f indings were confirmed with a less than 17 m fibroid on the posterior right fundal portion of the uterus. There was no other pathology throughout the pelvis. A Filshie clip was firmly placed across the isthmic portion of each fallopian tube where was firmly affixed. Using the hysteroscope, the bilateral tubal ostia were seen and there was no evidence of any intrauterine pathology. The settings for the NovaSure tool where a length of 5.5 cm with a width of 4.2 cm for a total power 127 W. After a run time of 60 seconds, the base unit read "procedure complete." The postprocedural result appeared to be excellent. The patient is a borderline candidate for vaginal hysterectomy should it become necessary in the future, would likely benefit from a da Rodo approach instead. Description of Procedure: The patient was prepped and draped in usual fashion after general endotracheal anesthesia was administered by the anesthesiologist. A weighted speculum was placed and the anterior lip of the cervix grasped with a single-tooth tenaculum. An acorn cannula was placed for uterine manipulation. The weighted speculum was removed and the bladder drained of approximately 25 mL of clear bettie urine. Attention was turned to the abdomen where a 5 mm incision was made in the transverse plane beneath the umbilicus in a semilunar fashion through pre- existing scar allowing insertion of a 5 mm optical trocar under direct visualization without difficulty. A pneumoperitoneum was infused and Trendelenburg positioning utilized. A site was selected in the midline appro ximately 4-5 cm above the pubic symphysis in the midline where an 8 mm incision was made in the transverse plane. An 8 mm optical trocar was then inserted under direct visualization without difficulty. The blunt probe was utilized to sweep the bowel from the pelvis and the findings are as noted above. The probe was replaced with a Filshie clip applicator which was utilized to place a Filshie clip across the isthmic portion of each fallopian tube approximately 2-3 cm from the cornu on each side were each was firmly affixed. Expiration of the remainder of the pelvis and upper abdomen demonstrated no findings are pathology. I was unable to visualize the appendix. The instrumentation was then removed and the entire pneumoperitoneum evacuated through the 2 trocar sites. The trochars were then removed and the incisions closed with interrupted subcuticular stitches of 4-0 Vicryl followed by half-inch Steri-Strips placed with Mastisol. The 2 incisions were infused with a total of 10 mL of half percent Marcaine without epinephrine equally divided between the 2 sites. Attention was then returned to the vagina where the weighted speculum was again replaced and the acorn cannula removed. The uterus was sounded to 9 cm with a cervical length of approximately 3.5 cm. Serial dilation was carried out to admit the diagnostic hysteroscope which was placed into the uterine cavity and t he cavity distended with normal saline. The findings were entirely normal as noted above and the bilateral tubal ostia were seen. The scope was then set aside and the NovaSure tool placed into the uterus where was opened, and seated well. The measurements or settings on the base unit were for a length of 5.5 cm with a width of 4.2 cm leading to a total power 127 W. The cavity check was attempted and passed without difficulty. The tool was enabled and the run was started. After a total run time of 60 seconds, the base unit read "procedure complete." The tool was closed, removed, and discarded. The diagnostic hysteroscope was replaced and the result appeared to be excellent. All instrumentation was then removed. There was no ongoing bleeding from the tenaculum site nor from the cervix. Estimated blood loss for the entire case was approximate 5 mL. There were no complications. All sponge, instrument, and needle counts were correct. The patient tolerated the procedure well and proceeded to the recovery room in stable condition.
[2022-11-11 12:26] VITALS: TEMP 97
[2022-11-11] MEDS ORDERED: HYDROmorphone 0.5 MG/0.5 ML SYRINGE IVP ONE ×2 (13:01→13:06)
[2022-11-11] MEDS ORDERED: LACTATED RINGERS 1,000 ML IV ONE ×2 (13:09)
[2022-11-11 14:57] VITALS: BP 100/60; PULSE 78; RESP 18
[2022-11-12] MEDS ORDERED: ACETAMINOPHEN TAB 325 MG TAB PO PRN (12:11)
== END 2022-11-11 15:05 | disposition home or self-care (01) ==
LOC: OR 08:12
PROVIDERS: ATTEND Obstetrics & Gynecology
DX: D25.9 Leiomyoma of uterus, unspecified (principal); Z30.2 Encounter for sterilization; I10 Essential (primary) hypertension; E78.5 Hyperlipidemia, unspecified; K21.9 Gastro-esophageal reflux disease without esophagitis; Z87.19 Personal history of other diseases of the digestive system; Z79.899 Other long term (current) drug therapy; Z90.49 Acquired absence of other specified parts of digestive tract; Z98.84 Bariatric surgery status; Z88.1 Allergy status to other antibiotic agents; Z88.5 Allergy status to narcotic agent
CPT/HCPCS: 81025; 58563; 58671; J2250; J0330; J1200; J1100; J2710; J2405; J3010; J1885; J2704; J1170; J2001

== ENCOUNTER → 2023-05-19 | Outpatient (CLI) | payer BC ==
[2023-05-19 14:27] LABS: Basophils # (A) 0.03 X 10*3/uL (0.00-0.10); Basophils % (A) 0.6 %; Eosinophils # (A) 0.12 X 10*3/uL (0.04-0.35); Eosinophils % (A) 2.4 %; HCT 40.5 % (37.2-46.3); HGB 13.5 g/dL (12.0-15.0); Lymphocytes # (A) 1.63 X 10*3/uL (0.90-5.00); Lymphocytes % (A) 32.1 %; MCH 30.3 pg (27.0-32.0); MCHC 33.3 g/dL (32.0-37.0); MCV 90.8 FL (80.0-97.0); Mean Platelet Volume 9.8 FL (9.5-12.2); Monocytes # (A) 0.36 X 10*3/uL (0.20-1.00); Monocytes % (A) 7.1 %; NRBC Per 100 WBC 0 X 10*3/uL (0.00-0.01); Neutrophils # (A) 2.92 X 10*3/uL (1.80-7.70); Neutrophils % (A) 57.6 %; Platelet Count 221 X 10*3/uL (140-440); RBC 4.46 X 10*6/uL (4.10-5.20); WBC 5.07 X 10*3/uL (4.50-10.00)
[2023-05-19 14:51] LABS: Blood Urea Nitrogen 11.6 mg/dL (9.0-27.0); Carbon Dioxide 26.9 mmol/L (21.6-31.8); Chloride 102 mmol/L (96-109); Glucose 81 mg/dL (70-110); Potassium 4.3 mmol/L (3.5-5.5); Sodium 139 mmol/L (135-145)
== END | disposition home or self-care (01) ==
LOC: LABPAT 08:52
PROVIDERS: ATTEND Obstetrics & Gynecology
DX: Z01.818 Encounter for other preprocedural examination (principal); I10 Essential (primary) hypertension; N92.1 Excessive and frequent menstruation with irregular cycle; N94.6 Dysmenorrhea, unspecified
CPT/HCPCS: 80051; 82565; 82947; 84520; 85025; 86850; 86900; 86901; 87086; 93005

== ENCOUNTER 2023-05-29 06:57 | Day surgery (SDC) | payer BC ==
[2023-05-22 14:49] VITALS: BMI 22.3
--- NOTE | 2023-05-25 21:53 | HP ---
HISTORY AND PHYSICAL DATE OF SCHEDULED SURGERY: 05/29/2023. HISTORY OF PRESENT ILLNESS: The patient is a 43-year-old 2, para 2-0-0-2 who presents to the office with a long-standing history of bleeding issues. She was initially controlled for a number of years with an oral contraceptive pill, but then was found with atypical ductal hyperplasia of the breast and was no longer a candidate for estrogen containing products per her surgical team and Oncology team. She did not tolerate the mini pill and also failed to control her symptoms. She has had a tubal ligation and NovaSure ablation done last year and, since that time, has had bleeding with significant cramping lasting for 2 out of every 4 weeks. She has now requested definitive therapy with hysterectomy. Exam bears out that she is at best a candidate for a robotic approach. PAST MEDICAL HISTORY: Significant for atypical ductal hyperplasia as noted above. PAST SURGICAL HISTORY: Significant for breast biopsy as well as gastric sleeve surgery. She additionally has had hysteroscopy with NovaSure endometrial ablation and tubal ligation. She had a right breast lumpectomy. She had her tonsils removed as a child as well as wisdom teeth. There were no anesthetic concerns. OBSTETRICAL HISTORY: 2, para 2-0-0-2 with 2 term vaginal deliveries without complications. Method of contraception has been tubal ligation. GYNECOLOGIC HISTORY: Unremarkable with no history of any infections to include STDs except as noted in history of present illness with the long-standing ongoing bleeding issues. FAMILY HISTORY: Noncontributory. 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 She is a nonsmoker and denies any alcohol, drugs, or any other social concerns. CURRENT MEDICATIONS: 1. Lisinopril 2.5 mg daily. 2. Omeprazole 20 mg daily. 3. Rosuvastatin 10 mg daily. 4. As well as a multivitamin daily. ALLERGIES: She apparently had a reaction to a cephalosporin in the past, though the reaction is not documented. She also had nausea and vomiting with Vicodin in the past. REVIEW OF SYSTEMS: Confined to history of present illness. PHYSICAL EXAMINATION: VITAL SIGNS: Stable. The patient is afebrile. GENERAL: This is a well-developed, well-nourished white female, in no acute distress. HEART: Has a regular rhythm and rate without murmur. LUNGS: Clear to auscultation bilaterally in all hart. ABDOMEN: Nondistended, has normoactive bowel sounds, is soft, nontender, without any palpable masses, hepatosplenomegaly, or hernias. EXTREMITIES: Without any cyanosis, clubbing, or edema and are nontender to palpation bilaterally. PELVIS: Demonstrates normal external genitalia and BUS with normal vaginal mucosa and cervix. There is no cervical motion tenderness. The uterus is 4 to 5 weeks, retroverted, mobile, nontender, normal in shape. The adnexa are normal and nontender without mass bilaterally. ASSESSMENT AND PLAN: 1. Menometrorrhagia. 2. Dysmenorrhea. 3. Failed ablation. The patient has requested definitive therapy with hysterectomy. Examination bears out that a robotic approach makes the most sense. As a result, she has been counseled regarding da Rodo robotically-assisted laparoscopic hysterectomy with bilateral salpingectomy and diagnostic cystoscopy. The risks and complications have been discussed at length including the risk for bleeding, bleeding requiring transfusion, infection, injury to local structures to specifically include the bowel, bladder, and ureters. She additionally was counseled regarding injury unique to da Rodo surgery to include thermal injury and vaginal cuff dehiscence. She has understood all of this and agreed to proceed. We are scheduled for the procedure as outlined above on the morning of Monday, May 29, 2023. MMODL / IJN: [id number] /
[2023-05-29] MEDS ORDERED: LACTATED RINGERS 1,000 ML IV SCH (07:36)
[2023-05-29] MEDS ORDERED: fentaNYL (PF) 50 MCG/ML 2 ML AMP IV PRN (07:36)
[2023-05-29] MEDS ORDERED: SCOPOLAMINE 1 MG/72 HR PATCH TRANSDERM ONE (07:36)
[2023-05-29] MEDS ORDERED: MIDAZOLAM 2 MG/2 ML VIAL IV PRN (07:36)
[2023-05-29] MEDS ORDERED: DEXAMETHASONE SOD PHOSPHATE 4 MG/ML 1 ML VIAL IV ONE (07:36)
[2023-05-29] MEDS ORDERED: ONDANSETRON 4 MG/2 ML VIAL IVP ONE ×2 (07:36→11:58)
[2023-05-29] MEDS ORDERED: LACTATED RINGERS 1,000 ML IV ONE (07:43)
--- NOTE | 2023-05-29 08:47 | P.ANPRN ---
Procedure Note - Anesthesia - Epidural/Spinal Spinal Time Out Performed: Yes Date of Procedure: 05/29/23 Procedure Start Time: 08:33 Procedure Stop Time: 08:38 Location of Patient: PreOp Indication: Acute Post-Operative Pain, Analgesia, Requested by Surgeon Sedation Type: Sedate with meaningful contact maintained Preparation: Sterile Prep Position: Sitting Catheter: None Needle Guage: 25 Injectate: Duramorph 0.3 mg+fentanyl 25mics Narrative: No paresthesia Blood Aspirated: No Pain Paresthesia on Injection Noted: No Events: Uneventful and Well Tolerated
[2023-05-29] MEDS ORDERED: BUPIVACAINE (PF) 0.25% 30 ML VIAL SQ ONE ×2 (09:39→10:24)
[2023-05-29] MEDS ORDERED: ONDANSETRON 4 MG/2 ML VIAL IVP PRN (10:31)
[2023-05-29] MEDS ORDERED: diphenhydrAMINE 50 MG/ML 1 ML VIAL IVP PRN (10:31)
[2023-05-29] MEDS ORDERED: Acetaminophen-Codeine 300-30mg TAB PO PRN ×2 (10:31)
[2023-05-29] MEDS ORDERED: METOCLOPRAMIDE 5 MG/ML 2 ML VIAL IVP PRN (10:31)
[2023-05-29] MEDS ORDERED: KETOROLAC 15 MG/ML 1 ML VIAL IVP PRN (10:31)
[2023-05-29] MEDS ORDERED: SIMETHICONE 80 MG CHEWABLE PO PRN (10:31)
[2023-05-29] MEDS ORDERED: IBUPROFEN 600 MG TAB PO PRN (10:31)
--- NOTE | 2023-05-29 10:41 | P.OP ---
Date of Procedure: 05/29/23 Preoperative Diagnosis: #1. Menometrorrhagia #2. Failed endometrial ablation Postoperative Diagnosis: Same Procedure(s) Performed: #1. Da Rodo robotically assisted laparoscopic hysterectomy with bilateral salpingectomy #2. Diagnostic cystoscopy Anesthesia: ERIS Surgeon: Javon Scales Air Pollution Control Engineer #1: Karma Diaz Estimated Blood Loss (ml): 20 IV fluids (ml): 600 Urine output (ml): 300 Pathology: other (Uterus and bilateral fallopian tubes) Condition: stable Disposition: PACU Operative Findings: Preoperative pelvic examination demonstrated a roughly 4-5 week midplane mobile normal shaped uterus with normal adnexa bilaterally. Intraoperatively, the pelvis was entirely normal to include the uterus, tubes, and ovaries. Bilateral Filshie clips were in place. There is no evidence of endometriosis or any other pathology present. Following the procedure, the dome of the bladder was noted to be intact both from a laparoscopic and cystoscopic perspective. The bilateral ureters were seen to be peristalsing normally with ureteral jets noted bilaterally. Description of Procedure: The patient was prepped and draped in usual fashion after general endotracheal anesthesia was then Mester by the anesthesiologist. A weighted speculum was placed and the anterior lip of the cervix grasped with single-tooth tenaculum. The uterus was sounded to approximately 10 cm. Serial dilation was carried out to admit a Vesicare uterine manipulator with a medium cup which was placed in standard fashion. The bladder was then catheterized for clear bettie urine. Attention was then turned to the abdomen where a site was selected approximately 3-4 synovators above the umbilicus in the midline where an 8 mm incision was made in the transverse plane allowing insertion of an 8 mm da Rodo optical port under direct visualization without difficulty. A site was selected in the left lower quadrant approximately 12 cm lateral and 3-4 synovators inferiorly to the optical port roughly equivalent to the umbilicus where an 8 mm incision was made in the transverse plane allowing insertion of an 8 mm da Rodo port under direct visualization without difficulty. The distance between the optical port in the left lower quadrant port was then bisected and a site selected approximately 4-5 synovators above the optical port were 10 mm incision was made in the transverse plane allowing insertion of a 10 mm ice cream freezer assistant port under direct visualization without difficulty. The right lower quadrant was then attended to where a mirroring port from the left lower quadrant was placed 12 cm lateral her and 4-5 cm inferiorly adjacent to the umbilicus. The robot was undocked the patient and the left arm loaded with the [place] bipolar cautery forceps while the right arm was loaded with a monopolar cautery scissors. I then presented to the console. The left fallopian tube was elevated and removed from its underlying tissues with the [place] bipolar cautery followed by sharply using the cautery with the scissors to remove it to the cornual area. The utero-ovarian ligament was clamped with the [place] grasper, cauterized, and divided through to the round ligament. The bladder peritoneum was then elevated and incised across the midline and the process of reflecting it distally started. The uterine vasculature was skeletonized and then cauterized with the [place] then cut with the scissors. Similar operations were carried out on the right side without difficulty. The bladder peritoneum was further reflected distally until the vaginal and cervical cup were easily identified. The cup was opened anteriorly sharply with the scissors using cautery. The cup was followed around circumferentially until the uterus was from the patient and removed into the vagina without difficulty. The monopolar cautery scissors were exchanged for a laparoscopic suturing device. A stitch of 0 Stratafix was passed into the abdomen and the cuff closed from the right angle cuff to the left with 2 stitches passed backwards in standard fashion for closure with the stitch. Hemostasis was excellent. Suction irrigation was carried out and there was no ongoing bleeding anywhere. I then returned to the patient, removed the Goncalves catheter, and placed a diagnostic cystoscope. The bladder was filled with sterile water and the dome of the bladder was noted to be intact both cystoscopically and laparoscopically. The ureteral hallux were seen and both were noted to be peristalsing normally with ureteral jets seen bilaterally. All instrumentation was then removed and the Goncalves catheter replaced. The robot was undocked in the 4 incisions closed with interrupted subcuticular stitches of 4-0 Vicryl followed by half-inch Steri-Strips placed with Mastisol. Estimated blood loss for the case was 20 mL or less. There were no complications. All sponge, instrument, and needle counts were correct. The patient tolerated the procedure well and proceeded to the recovery room in stable condition.
[2023-05-29] MEDS ORDERED: diphenhydrAMINE 50 MG/ML 1 ML VIAL IVP ONE (11:56)
[2023-05-29] MEDS: LACTATED RINGERS 1,000 ML IV SCH ×2 (11:59→17:58)
[2023-05-29 13:02] VITALS: RESP 16
[2023-05-29] MEDS: SENNOSIDES-DOCUSATE SODIUM 1 EACH TAB PO SCH (19:57)
[2023-05-30 00:25] VITALS: TEMP 97.9
[2023-05-30 05:55] LABS: Basophils % (A) 0 %; Eosinophils # (A) 0.1 k/uL (0-0.7); Eosinophils % (A) 1 %; HCT 34.5 % (34.0-46.0); HGB 11.8 gm/dL (11.4-16.0); Lymphocytes % (A) 19 %; MCHC 34.2 g/dL (31.0-37.0); MCV 90.4 fL (80.0-100.0); Mean Platelet Volume 7.3; Monocytes # (A) 0.4 k/uL (0-1.0); Monocytes % (A) 4 %; Neutrophils % (A) 76 %; Platelet Count 186 k/uL (150-450); RBC 3.81 m/uL (3.80-5.40); RDW 12.1 % (11.5-15.5); WBC 10.5 k/uL (3.8-10.6)
[2023-05-30] MEDS: LACTATED RINGERS 1,000 ML IV SCH (07:32)
[2023-05-30 07:49] VITALS: BP 96/60; PULSE 89
--- NOTE | 2023-05-30 08:34 | P.DS ---
Providers Expected date of discharge: 05/30/23 Attending physician: Javon Scales Primary care physician: Rebecca Lawrence - Discharge Diagnosis(es) (1) History of endometrial ablation Current Visit: Yes Status: Acute (2) Menometrorrhagia Current Visit: Yes Status: Acute Hospital Course: The patient is a 43-year-old 2 para 2001 presented the office with a long-standing history of bleeding concerns. She was controlled with for a number of years with oral contraceptive pills Pitocin was found to no longer be a candidate as she had atypical ductal hyperplasia of the breast. She did not tolerate a mini pill and also failed to control her bleeding. As a result she underwent tubal ligation with NovaSure ablation approximately 8 months ago. Since that time she is had significant irregular bleeding and heavy bleeding that lasts roughly 2 of every 4 weeks. She requested definitive therapy with hysterectomy. As result, she was taken the operating room where she underwent da Rodo robotically assisted laparoscopic hysterectomy with bilateral salpingectomy and entirely uncomplicated fashion. Her postoperative course was unremarkable vital signs being stable and her temperature was afebrile throughout. She was deemed stable for discharge on postoperative day #1 was discharged home to follow-up in the office in 2 weeks for incision checks and 8 weeks routinely. Discharge instructions included calling for any significantly increased bleeding, fever, pain, incisional complaints, bladder or GI concerns, or anything else that concerned her. She was additionally instructed to have nothing in the vagina for at least 8 weeks time to include intercourse. She was to abstain from driving until off of all pain medications or 2 weeks' time, whichever came first. She understood all of her instructions and agrees to follow up as noted above. Discharge medications included only normal home medic ations as well as [id number] analgesic pain medications. Discharge hemoglobin and hematocrit were 11.8 and 34.5 respectively. Procedures: #1. Da Rodo robotically assisted laparoscopic hysterectomy with bilateral salpingectomy #2. Diagnostic cystoscopy Patient Condition at Discharge: Stable Plan - Discharge Summary Discharge Rx Participant: Yes New Discharge Prescriptions: No Action Multivitamins, Thera [Multivitamin (formulary)] 1 each PO DAILY Omeprazole [PriLOSEC] 20 mg PO MOWEFR lisinopriL 2.5 mg PO HS Cetirizine HCl [Zyrtec] 10 mg PO HS Melatonin 5 mg PO HS L.acidoph,Paracasei, B.lactis [Probiotic] 1 tab PO DAILY Rosuvastatin [Crestor] 10 mg PO HS Cyanocobalamin (Vitamin B-12) [Vitamin B-12] 2,500 mcg PO MO Discharge Medication List Multivitamins, Thera [Multivitamin (formulary)] 1 each PO DAILY 10/13/14 [H istory] Omeprazole [PriLOSEC] 20 mg PO MOWEFR 03/13/20 [History] L.acidoph,Paracasei, B.lactis [Probiotic] 1 tab PO DAILY 04/22/21 [History] Rosuvastatin [Crestor] 10 mg PO HS 11/09/21 [History] lisinopriL 2.5 mg PO HS 03/03/22 [History] Cetirizine HCl [Zyrtec] 10 mg PO HS 05/22/23 [History] Cyanocobalamin (Vitamin B-12) [Vitamin B-12] 2,500 mcg PO MO 05/22/23 [History] Melatonin 5 mg PO HS 05/22/23 [History] Follow up Appointment(s)/Referral(s): Javon Scales MD [STAFF PHYSICIAN] - 2 Weeks Discharge Disposition: HOME SELF-CARE
[2023-05-30] MEDS ORDERED: ACETAMINOPHEN TAB 325 MG TAB PO PRN (10:32)
[2023-05-30] MEDS: SENNOSIDES-DOCUSATE SODIUM 1 EACH TAB PO SCH (10:33)
--- NOTE | 2023-05-30 10:59 | P.PN ---
Progress Note - Text Progress Note Date: 05/30/23 Postop day robotic hysterectomy under general anesthesia with intrathecal morphine given for postop pain management. Patient is doing well. Pain is well controlled. On visual analog scale 2/10 Mild itching present Slight nausea present but no vomiting reported. No Headache or weakness and numbness in the legs. No complications from spinal anesthesia.
== END 2023-05-30 10:30 | disposition home or self-care (01) ==
LOC: OR 06:57 → 4FBP 10:41 → OR 05-30 10:30
PROVIDERS: ATTEND Obstetrics & Gynecology
DX: D25.1 Intramural leiomyoma of uterus (principal); Z79.899 Other long term (current) drug therapy; Z88.1 Allergy status to other antibiotic agents; Z88.5 Allergy status to narcotic agent
CPT/HCPCS: 81025; 85025; 88307; 58571; J2250; J1200; J1100; J0690; J2405 ×2; J1885; J0665

== ENCOUNTER 2023-06-17 19:46 | Observation (INO) | payer BC ==
--- NOTE | 2023-06-17 20:28 | ED ---
Female Urogenital HPI - General Chief complaint: Vaginal Bleeding Stated complaint: post op bleeding Time Seen by Provider: 06/17/23 20:20 Source: patient Mode of arrival: ambulatory Limitations: no limitations - History of Present Illness Initial comments: Patient is a 43-year-old female presenting to the ER with a chief complaint of vaginal bleeding. Patient is 3 weeks status post laparoscopic hysterectomy by Dr. Scales. She reports the past week she has been having some brown to light pink discharge. Patient states she followed up with Dr. Scales earlier this week and everything was good. Patient reports that earlier tonight while at dinner she stood up and passed a large clot. Patient states she went to the bathroom and saw a lot of blood coming from her vagina and running down her legs. Patient reportedly to the ER after. Patient denies any abdominal pain, known trauma, blood thinner use. - Related Data Home Medications Medication Instructions Recorded Confirmed Multivitamins, Thera [Multivitamin 1 tab PO DAILY 10/13/14 06/17/23 (formulary)] Omeprazole [PriLOSEC] 20 mg PO MOWEFR 03/13/20 06/17/23 L.acidoph,Paracasei, B.lactis 1 tab PO DAILY 04/22/21 06/17/23 [Probiotic] Rosuvastatin [Crestor] 10 mg PO HS 11/09/21 06/17/23 lisinopriL 2.5 mg PO HS 03/03/22 06/17/23 Cetirizine HCl [Zyrtec] 10 mg PO HS 05/22/23 06/17/23 Cyanocobalamin (Vitamin B-12) 2,500 mcg PO MO 05/22/23 06/17/23 [Vitamin B-12] Melatonin 5 mg PO HS 05/22/23 06/17/23 Allergies Allergy/AdvReac Type Severity Reaction Status Date / Time cefdinir Allergy colitis Verified 06/17/23 21:23 hydrocodone bitartrate Allergy Nausea & Verified 06/17/23 21:23 [From Vicodin] Vomiting Review of Systems ROS Statement: Those systems with pertinent positive or pertinent negative responses have been documented in the HPI. ROS Other: All systems not noted in ROS Statement are negative. Past Medical History Past Medical History: GERD/Reflux, Hyperlipidemia, Hypertension Additional Past Medical History / Comment(s): Hx Colitis once from antibiotic. Hx gout. History of Any Multi-Drug Resistant Organisms: None Reported Past Surgical History: Bariatric Surgery, Breast Surgery, Hysterectomy, Tonsillectomy Additional Past Surgical History / Comment(s): Right breast biopsy/lumpectomy, sleeve gastrectomy 2--. Past Anesthesia/Blood Transfusion Reactions: No Reported Reaction Past Psychological History: No Psychological Hx Reported Smoking Status: Never smoker Past Alcohol Use History: None Reported Past Drug Use History: None Reported - Past Family History Mother Family Medical History: No Reported History General Exam Limitations: no limitations General appearance: alert, in no apparent distress Head exam: Present: atraumatic, normocephalic, normal inspection Eye exam: Present: normal appearance, PERRL, EOMI. Absent: scleral icterus, conjunctival injection, periorbital swelling Respiratory exam: Present: normal lung sounds bilaterally. Absent: respiratory distress, wheezes, rales, rhonchi, stridor Cardiovascular Exam: Present: regular rate, normal rhythm, normal heart sounds. Absent: systolic murmur, diastolic murmur, rubs, gallop, clicks External exam: Present: normal external exam, other (Vaginal bleeding) Speculum exam: Present: vaginal bleeding (Brisk with multiple clots. Vaginal cuff intact) Neurological exam: Present: alert, oriented X3, CN II-XII intact Psychiatric exam: Present: normal affect, normal mood, anxious Skin exam: Present: warm, dry, intact, normal color. Absent: rash Course Vital Signs 06/17/23 19:47 Temperature 97.9 F Pulse Rate 84 Respiratory 16 Rate Blood Pressure 148/91 O2 Sat by Pulse 100 Oximetry - Reevaluation(s) Reevaluation #1: 06/17/23 20:[address] Roberto for consult Medical Decision Making - Medical Decision Making Was pt. sent in by a medical professional or institution (, PA, DIRECTOR STARS, urgent care, hospital, or senior care...) When possible be specific @ -No Did you speak to anyone other than the patient for history (EMS, parent, family, police, friend...)? What history was obtained from this source @ -No Did you review nursing and triage notes (agree or disagree)? Why? @ -I reviewed and agree with nursing and triage notes Were old charts reviewed (outside hosp., previous admission, EMS record, old EKG, old radiological studies, urgent care reports/EKG's, senior care records)? Report findings @ -No old charts were reviewed Differential Diagnosis (chest pain, altered mental status, abdominal pain women, abdominal pain men, vaginal bleeding, weakness, fever, dyspnea, syncope, headache, dizziness, GI bleed, back pain, seizure, CVA, palpatations, mental health, musculoskeletal)? @ -Differential Vaginal Bleeding:Spontaneous , threatened , molar , ectopic , bloody show, incompetent cervix, abruptioplacenta, placenta previa, uterine rupture, dysfunctional uterine bleeding, hemorrhage, uterine fibroids, this is not meant to be an all-inclusive list. EKG interpreted by me (3pts min.). @ -None X-rays interpreted by me (1pt min.). @ -None done CT interpreted by me (1pt min.). @ -None done U/S interpreted by me (1pt. min.). @ -None done What testing was considered but not performed or refused? (CT, X-rays, U/S, labs)? Why? @ -None What meds were considered but not given or refused? Why? @ -None Did you discuss the management of the patient with other professionals (professionals i.e. , PA, DIRECTOR STARS, lab, RT, psych nurse, healthcare social worker, field professional, teacher, wildlife conservation officer, corrections caseworker)? Give summary @ -[Yes, I discussed this case with Dr. Roberto, air conditioning insulation installer CLOTH SHRINKING MACHINE OPERATOR, who evaluated patient at [facility]. She placed packing and admitted patient for observation. Was smoking cessation discussed for >3mins.? @ -No Was critical care preformed (if so, how long)? @ -No Were there social determinants of health that impacted care today? How? (Homelessness, low income, unemployed, alcoholism, drug addiction, transportation, low edu. Level, literacy, decrease access to med. care, skilled nursing, rehab)? @ -No Was there de-escalation of care discussed even if they declined (Discuss DNR or withdrawal of care, Hospice)? DNR status @ -No What co-morbidities impacted this encounter? (DM, HTN, Smoking, COPD, CAD, Cancer, CVA, ARF, Chemo, Hep., AIDS, mental health diagnosis, sleep apnea, morbid obesity)? @ -None Was patient admitted / discharged? Hospital course, mention meds given and route, prescriptions, significant lab abnormalities, going to OR and other pertinent info. @ -Admitted. Patient is a 43 year old female presenting to the ER with a chief complaint of vaginal bleeding. Patient is 3 weeks status post laparoscopic hysterectomy by Dr. Scales. History and physical exam were completed. Vitals stable. Patient no signs of acute distress. Pelvic exam chaperoned by Lorri Gonzalez RN. Speculum exam significant for multiple blood clots and brisk bleeding. Vaginal cuff intact. Labs obtained in the ER unimpressive. Hgb 13. Due to concern of possible cuff rupture and amount of bleeding Dr. Roberto, air conditioning insulation installer CLOTH SHRINKING MACHINE OPERATOR, was contacted. Dr. Roberto evaluated patient at bedside and placed vaginal packing. She advised admission of patient for observation. Patient will be admitted to Dr. Roberto for further care and treatment. Patient in agreement with plan. Undiagnosed new problem with uncertain prognosis? @ -No Drug Therapy requiring intensive monitoring for toxicity (Heparin, Nitro, Insulin, Cardizem)? @ -No Were any procedures done? @ -No Diagnosis/symptom? @ -Vaginal bleeding s/p laparoscopic hysterectomy Acute, or Chronic, or Acute on Chronic? @ -Acute Uncomplicated (without systemic symptoms) or Complicated (systemic symptoms)? @ -Uncomplicated Side effects of treatment? @ -No Exacerbation, Progression, or Severe Exacerbation? @ -No Poses a threat to life or bodily function? How? (Chest pain, USA, VT, pneumonia, PE, COPD, DKA, ARF, appy, cholecystitis, CVA, Diverticulitis, Homicidal, Suicidal, threat to staff... and all critical care pts) @ -No - Lab Data Result diagrams: 06/17/23 20:24 06/17/23 20:24 Lab Results 06/17/23 06/17/23 06/17/23 Range/Units 20:23 20:24 20:24 WBC 7.7 (3.8-10.6) k/uL RBC 4.23 (3.80-5.40) m/uL Hgb 13.5 (11.4-16.0) gm/dL Hct 38.0 (34.0-46.0) % MCV 89.8 (80.0-100.0) fL MCH 31.9 (25.0-35.0) pg MCHC 35.5 (31.0-37.0) g/dL RDW 12.0 (11.5-15.5) % Plt Count 257 (150-450) k/uL MPV 6.8 PT 10.6 (10.0-12.5) sec INR 1.0 (<1.2) APTT 25.6 (22.0-30.0) sec Sodium 136 L (137-145) mmol/L Potassium 3.9 (3.5-5.1) mmol/L Chloride 105 (98-107) mmol/L Carbon Dioxide 24 (22-30) mmol/L Anion Gap 7 mmol/L BUN 16 (7-17) mg/dL Creatinine 0.49 L (0.52-1.04) mg/dL Est GFR (CKD-EPI)AfAm >90 (>60 ml/min/1.73 sqM) Est GFR (CKD-EPI)NonAf >90 (>60 ml/min/1.73 sqM) Glucose 102 H (74-99) mg/dL Calcium 9.1 (8.4-10.2) mg/dL Total Bilirubin 0.9 (0.2-1.3) mg/dL AST 33 (14-36) U/L ALT 28 (4-34) U/L Alkaline Phosphatase 95 (38-126) U/L Total Protein 6.8 (6.3-8.2) g/dL Albumin 4.3 (3.5-5.0) g/dL Disposition Clinical Impression: Vaginal bleeding Disposition: ADMITTED IP TO THIS HOSP Condition: Stable Referrals: Rebecca Lawrence MD [Primary Care Provider] - 1-2 days Time of Disposition: 21:21
[2023-06-17 20:43] LABS: HGB 13.5 gm/dL (11.4-16.0); MCH 31.9 pg (25.0-35.0); MCHC 35.5 g/dL (31.0-37.0); MCV 89.8 fL (80.0-100.0); Mean Platelet Volume 6.8; Platelet Count 257 k/uL (150-450); RBC 4.23 m/uL (3.80-5.40); WBC 7.7 k/uL (3.8-10.6)
[2023-06-17 20:52] LABS: ALT 28 U/L (4-34); AST 33 U/L (14-36); African American GFR (CKD) >90 (>60 ml/min/1.73 sqM); Albumin 4.3 g/dL (3.5-5.0); Alkaline Phosphatase 95 U/L (38-126); Anion Gap 7 mmol/L; Blood Urea Nitrogen 16 mg/dL (7-17); Calcium 9.1 mg/dL (8.4-10.2); Carbon Dioxide 24 mmol/L (22-30); Chloride 105 mmol/L (98-107); Glucose 102 mg/dL (74-99); Non-African American GFR(CKD) >90 (>60 ml/min/1.73 sqM); Potassium 3.9 mmol/L (3.5-5.1); Sodium 136 mmol/L (137-145); Total Bilirubin 0.9 mg/dL (0.2-1.3); Total Protein 6.8 g/dL (6.3-8.2)
[2023-06-17 20:54] LABS: Partial Thromboplastin Time 25.6 sec (22.0-30.0); Prothrombin Time 10.6 sec (10.0-12.5)
[2023-06-17] MEDS: BACITRACIN ZINC 500 UNIT/GM OINT 28.4 GM TUBE TOPICAL ONE (21:06)
[2023-06-17] MEDS: BACITRACIN OINT 1 EACH PACKET TOPICAL ONE (21:08)
--- NOTE | 2023-06-17 21:18 | P.HPOB ---
History of Present Illness H&P Date: 06/17/23 Chief Complaint: Vaginal bleeding status post RAVH 43-year-old female that presents approximately 3 weeks status post robotic assisted vaginal hysterectomy with complaints of vaginal bleeding. Patient states she was out to dinner tonight and when she got up to use the bathroom she felt something "come out". Patient noted passage of a golf ball sized clot in the bathroom with onset of brisk vaginal bleeding. Patient denied dizziness or shortness of breath. Patient then presented to the emergency department approximately 30 minutes after onset of vaginal bleeding. Patient states her hysterectomy was uncomplicated. Her postoperative course up until this point was uncomplicated. Hysterectomy done for a failed endometrial ablation done for heavy menstrual bleeding. Review of Systems Constitutional: Denies chills, Denies fatigue, Denies fever Ears, nose, mouth and throat: Denies headache Cardiovascular: Denies leg edema Respiratory: Denies dyspnea Gastrointestinal: Denies vomiting Genitourinary: Reports as per HPI, Reports abnormal vaginal bleeding, Denies Menstruation: Reports as per HPI Past Medical History Past Medical History: GERD/Reflux, Hyperlipidemia, Hypertension Additional Past Medical History / Comment(s): Hx Colitis once from antibiotic. Hx gout. History of Any Multi-Drug Resistant Organisms: None Reported Past Surgical History: Bariatric Surgery, Breast Surgery, Hysterectomy, Tonsillectomy Additional Past Surgical History / Comment(s): Right breast biopsy/lumpectomy, sleeve gastrectomy 06-15-20. Past Anesthesia/Blood Transfusion Reactions: No Reported Reaction Past Psychological History: No Psychological Hx Reported Smoking Status: Never smoker Past Alcohol Use History: None Reported Past Drug Use History: None Reported - Past Family History Mother Family Medical History: No Reported History Medications and Allergies Home Medications Medication Instructions Recorded Confirmed Type Multivitamins, Thera [Multivitamin 1 each PO DAILY 10/13/14 05/29/23 History (formulary)] Omeprazole [PriLOSEC] 20 mg PO MOWEFR 03/13/20 05/29/23 History L.acidoph,Paracasei, B.lactis 1 tab PO DAILY 04/22/21 05/29/23 History [Probiotic] Rosuvastatin [Crestor] 10 mg PO HS 11/09/21 05/29/23 History lisinopriL 2.5 mg PO HS 03/03/22 05/29/23 History Cetirizine HCl [Zyrtec] 10 mg PO HS 05/22/23 05/29/23 History Cyanocobalamin (Vitamin B-12) 2,500 mcg PO MO 05/22/23 05/29/23 History [Vitamin B-12] Melatonin 5 mg PO HS 05/22/23 05/29/23 History Allergies Allergy/AdvReac Type Severity Reaction Status Date / Time cefdinir Allergy colitis Verified 06/17/23 19:50 hydrocodone bitartrate Allergy Nausea & Verified 06/17/23 19:50 [From Vicodin] Vomiting Exam Osteopathic Statement: *. No significant issues noted on an osteopathic structural exam other than those noted in the History and Physical/Consult. Vital Signs Temp Pulse Resp BP Pulse Ox 06/17/23 19:47 97.9 F 84 16 148/91 100 Intake and Output 06/17/23 06/17/23 06/17/23 06:59 14:59 22:59 Other: Weight 58.513 kg Targeted physical exam is performed this date General is well-nourished well- developed female in no acute distress, breathing is noted to be nonlabored, heart has a regular rate and rhythm, abdomen is soft and nontender, and genitourinary exam external genitalia is known to be normal for age. On placement of the speculum a large clot was removed from the vaginal vault bleeding was noted on the right lateral edge of the vaginal cuff. Surgicel powder was placed over the vaginal cuff and iodoform packing was placed with bacitracin applied up tightly against the vaginal cuff. Results Result Diagrams: 06/17/23 20:24 06/17/23 20:24 Abnormal Lab Results - Last 24 Hours (Table) 06/17/23 Range/Units 20:24 Sodium 136 L (137-145) mmol/L Creatinine 0.49 L (0.52-1.04) mg/dL Glucose 102 H (74-99) mg/dL Assessment and Plan (1) Vaginal bleeding Current Visit: Yes Status: Acute Code(s): N93.9 - ABNORMAL UTERINE AND VAGINAL BLEEDING, UNSPECIFIED SNOMED Code(s): 130534943 (2) S/P laparoscopic hysterectomy Current Visit: Yes Status: Acute Code(s): Z90.710 - ACQUIRED ABSENCE OF BOTH CERVIX AND UTERUS SNOMED Code(s): 046868677 Plan: 43-year-old female status post hysterectomy on May 29 approximately 3 weeks ago with onset of vaginal bleeding this evening. Plan: Vaginal packing and Surgicel powder is placed along the vaginal cuff, Will admit patient for observation through the night. Hemoglobin stable at 13. Plan n.p.o. status if bleeding does not cease, we will plan exam under anesthesia with possible need for suture ligation of vaginal cuff.
[2023-06-17] MEDS: ACETAMINOPHEN IV (For NPO) 1,000 MG in EMPTY BAG 1 BAG IVPB ONE (21:33)
[2023-06-17] MEDS: FERRIC SUBSULFATE (MONSELS) JAR TOPICAL ONE (21:44)
[2023-06-17] MEDS: LACTATED RINGERS 1,000 ML IV ONE (22:13)
[2023-06-17 23:00] LABS: HGB 12.3 gm/dL (11.4-16.0); MCH 30.6 pg (25.0-35.0); MCHC 34.2 g/dL (31.0-37.0); MCV 89.4 fL (80.0-100.0); Mean Platelet Volume 7.2; Platelet Count 230 k/uL (150-450); RBC 4.03 m/uL (3.80-5.40); RDW 11.9 % (11.5-15.5); WBC 7.7 k/uL (3.8-10.6)
[2023-06-18] MEDS: IBUPROFEN IV 800 MG in SODIUM CHLORIDE 0.9% 250 ML IV ONE (04:32)
--- NOTE | 2023-06-18 05:59 | P.PN ---
Progress Note - Text Progress Note Date: 06/18/23 43yo female admitted for observation. She had noted vaginal bleeding while at dinner. Patient was examined at the ER 2 large clots were removed Surgicel powder and packing were placed. Patient has noted increased pelvic fullness since packing was placed and has been unable to void. Patient did undergo straight cath and just over 400 cc was removed. Goncalves catheter was then placed to drain. Patient has had continued episodes of bleeding through the night. Most recently she saturated 1 pad. vitals remain stable gen: appears stable NAD : external genitalia is noted to be normal with old blood noted no active flow appreciated. pad was just changed, and she was cleaned up by RN KATELYN thru the night was 204 A: post op vaginal cuff bleed, s/p [facility] 05/29 Urinary retention P: as she has failed conservative management with vaginal packing and Surgicel powder will plan exam under anesthesia with possible repair of vaginal defect. Patient states understanding, of plan and need for further evaluation under anesthesia. Goncalves catheter placed secondary to urinary retention CBC, CMP ordered
[2023-06-18 06:06] LABS: HCT 34.8 % (34.0-46.0); MCH 31.2 pg (25.0-35.0); MCHC 34.5 g/dL (31.0-37.0); MCV 90.3 fL (80.0-100.0); Platelet Count 235 k/uL (150-450); RBC 3.85 m/uL (3.80-5.40); RDW 11.9 % (11.5-15.5); WBC 7.1 k/uL (3.8-10.6)
[2023-06-18 06:25] LABS: ALT 25 U/L (4-34); AST 27 U/L (14-36); African American GFR (CKD) >90 (>60 ml/min/1.73 sqM); Albumin 3.6 g/dL (3.5-5.0); Alkaline Phosphatase 82 U/L (38-126); Anion Gap 7 mmol/L; Blood Urea Nitrogen 11 mg/dL (7-17); Calcium 8.8 mg/dL (8.4-10.2); Carbon Dioxide 22 mmol/L (22-30); Chloride 108 mmol/L (98-107); Glucose 110 mg/dL (74-99); Non-African American GFR(CKD) >90 (>60 ml/min/1.73 sqM); Potassium 3.9 mmol/L (3.5-5.1); Sodium 137 mmol/L (137-145); Total Bilirubin 1.2 mg/dL (0.2-1.3)
[2023-06-18] MEDS: LACTATED RINGERS 1,000 ML IV ONE ×2 (06:53→08:30)
[2023-06-18] MEDS: DEXAMETHASONE SOD PHOSPHATE 4 MG/ML 1 ML VIAL IVP ONE (07:05)
[2023-06-18] MEDS: ONDANSETRON 4 MG/2 ML VIAL IVP ONE (07:05)
[2023-06-18] MEDS: MIDAZOLAM 2 MG/2 ML VIAL IVP ONE (07:08)
[2023-06-18] MEDS ORDERED: fentaNYL (PF) 50 MCG/ML 2 ML AMP ONE (07:34)
[2023-06-18] MEDS ORDERED: PROPOFOL 10 MG/ML 20 ML VIAL IV ONE (07:34)
[2023-06-18] MEDS: ceFAZolin 1,000 MG VIAL IVPB ONE ×2 (07:34→07:39)
[2023-06-18] MEDS ORDERED: MIDAZOLAM 2 MG/2 ML VIAL ONE (07:34)
[2023-06-18] MEDS ORDERED: SIMETHICONE 80 MG CHEWABLE PO PRN (08:18)
[2023-06-18] MEDS ORDERED: IBUPROFEN 600 MG TAB PO PRN (08:18)
[2023-06-18] MEDS ORDERED: Acetaminophen-Codeine 300-30mg TAB PO PRN (08:18)
--- NOTE | 2023-06-18 08:18 | P.OP ---
Date of Procedure: 06/18/23 Preoperative Diagnosis: Status post robotic hysterectomy, vaginal bleeding Postoperative Diagnosis: Same, vaginal cuff defect Procedure(s) Performed: Exam under anesthesia, closure of midline vaginal cuff defect Anesthesia: MAC Surgeon: Samantha Roberto Estimated Blood Loss (ml): 100 Urine output (ml): 200 (Clear yellow) Pathology: none sent Condition: stable Disposition: PACU Indications for Procedure: 43-year-old female presented last evening with complaints of vaginal bleeding that started suddenly, passage of large clot followed by continued bleeding/dripping into the toilet. Patient presented to the ER where brisk vaginal bleeding was appreciated. Patient was seen in the ER clots were removed from the vaginal vault Surgicel powder was placed along the vaginal cuff and packing was placed. Through the evening patient had noted increase in bleeding approximately 4 hours after packing was placed. In addition urinary retention, Goncalves catheter was placed revealing clear yellow urine. Stat CBC was obtained, admitting hemoglobin 13, 12 this morning. Vital signs remained stable, patient was taken back to the operating room for exam under anesthesia for better visualization of site of bleeding. Operative Findings: Approximately 100 cc of clot were removed from the patient's vaginal vault following removal of vaginal packing. Vaginal cuff was noted to have a midline defect coming mucosal. 0 Vicryl was used in a [id number]-oz-hqrly fashion to obtain closure. Following closure no further bleeding was appreciated. Vaginal cuff was observed for approximately 5 minutes with no further bleeding. Surgicel powder was placed along the vaginal cuff, once again observed for approximately 5 minutes with no pooling or discoloration of the powder. Description of Procedure: Patient was taken back to the operating suite where general anesthesia was obtained without difficulty by the anesthesia department. She was prepped and draped in the normal sterile fashion in the dorsolithotomy position. A Goncalves catheter had been placed prior to surgery and was draining clear yellow urine. The vaginal packing was removed without difficulty it was saturated with blood. A weighted speculum was placed in posterior vaginal vault. Numerous clots were removed from the patient's vaginal vault. A sponge stick was used to visualize the vaginal cuff, a small amount of bleeding was noted midportion of the vaginal cuff, mucosal defect. Mucosa was elevated and closed in a glwumz-gs-[id number] fashion with 0 Vicryl. Hemostasis was appreciated afterwards. Pressure was applied and no bleeding was noted after approximately 5 minutes. Surgicel powder was placed along the vaginal cuff. After approximately 5 minutes no discoloration of the powder was appreciated no pooling was noted. A ll instruments removed from the patient's vaginal vault. All counts were to be correct x 2. Patient tolerated procedure well and was taken the recovery room awake in stable condition.
[2023-06-18] MEDS: SENNOSIDES-DOCUSATE SODIUM 1 EACH TAB PO SCH (12:16)
[2023-06-18] MEDS: ACETAMINOPHEN TAB 325 MG TAB PO PRN (12:20)
[2023-06-18 14:12] LABS: Basophils % (A) 0 %; Eosinophils # (A) 0.1 k/uL (0-0.7); Eosinophils % (A) 2 %; HCT 35.6 % (34.0-46.0); HGB 12.3 gm/dL (11.4-16.0); Lymphocytes # (A) 0.6 k/uL (1.0-4.8); Lymphocytes % (A) 7 %; MCH 31.3 pg (25.0-35.0); MCHC 34.7 g/dL (31.0-37.0); MCV 90.2 fL (80.0-100.0); Mean Platelet Volume 6.9; Monocytes # (A) 0.1 k/uL (0-1.0); Monocytes % (A) 1 %; Neutrophils # (A) 6.9 k/uL (1.3-7.7); Neutrophils % (A) 90 %; Platelet Count 227 k/uL (150-450); RBC 3.95 m/uL (3.80-5.40); RDW 11.9 % (11.5-15.5); WBC 7.7 k/uL (3.8-10.6)
[2023-06-18] MEDS: Acetaminophen-Codeine 300-30mg TAB PO PRN (19:52)
[2023-06-18 20:23] VITALS: RESP 16
[2023-06-18] MEDS: ONDANSETRON 4 MG/2 ML VIAL IVP PRN (21:51)
[2023-06-19 01:07] VITALS: TEMP 97.7
[2023-06-19 08:03] VITALS: BP 102/68; PULSE 87
--- NOTE | 2023-06-19 09:24 | P.DS ---
Providers Date of admission: 06/17/23 21:10 Expected date of discharge: 06/19/23 Attending physician: Samantha Roberto Primary care physician: Rebecca Lawrence - Discharge Diagnosis(es) (1) S/P laparoscopic hysterectomy Current Visit: Yes Status: Acute (2) Vaginal bleeding Current Visit: Yes Status: Acute Hospital Course: The patient is a 43-year-old woman roughly 3 weeks status post robotic hysterectomy who presented to the emergency room with acute onset of vaginal bleeding and was found to have eroded the vaginal cuff stitches through and having acute vaginal bleeding. Attempts to control it with packing unsuccessful and she was taken to the operating room where several stitches were placed through the vaginal cuff. There was no opening into the peritoneal cavity and no evidence of significant vaginal cuff dehiscence. Following surgery, her vaginal bleeding was minimal and she was deemed stable for discharge on postoperative day #1. She was to follow-up in the office in approximately 4-6 weeks as previously planned. Instructions included remaining relatively at rest with complete vaginal rest, no intercourse or anything else in the vagina until follow-up. She understood her instructions and agrees follow up as noted above. Discharge medications included only normal home medications as well as [id number] analgesic pain medications. Discharge hemoglobin and hematocrit were 12.3 and 35.6 respectively. Procedures: #1. Vaginal packing #2. Surgical repair of vaginal cuff Patient Condition at Discharge: Stable Plan - Discharge Summary New Discharge Prescriptions: No Action Multivitamins, Thera [Multivitamin (formulary)] 1 tab PO DAILY Omeprazole [PriLOSEC] 20 mg PO MOWEFR lisinopriL 2.5 mg PO HS Cetirizine HCl [Zyrtec] 10 mg PO HS Melatonin 5 mg PO HS L.acidoph,Paracasei, B.lactis [Probiotic] 1 tab PO DAILY Rosuvastatin [Crestor] 10 mg PO HS Cyanocobalamin (Vitamin B-12) [Vitamin B-12] 2,500 mcg PO MO Discharge Medication List Multivitamins, Thera [Multivitamin (formulary)] 1 tab PO DAILY 10/13/14 [History] Omeprazole [PriLOSEC] 20 mg PO MOWEFR 03/13/20 [History] L.acidoph,Paracasei, B.lactis [Probiotic] 1 tab PO DAILY 04/22/21 [History] Rosuvastatin [Crestor] 10 mg PO HS 11/09/21 [History] lisinopriL 2.5 mg PO HS 03/03/22 [History] Cetirizine HCl [Zyrtec] 10 mg PO HS 05/22/23 [History] Cyanocobalamin (Vitamin B-12) [Vitamin B-12] 2,500 mcg PO MO 05/22/23 [History] Melatonin 5 mg PO HS 05/22/23 [History] Follow up Appointment(s)/Referral(s): Rebecca Lawrence MD [Primary Care Provider] - 1-2 days Javon Scales MD [STAFF PHYSICIAN] - 4 Weeks Discharge Disposition: HOME SELF-CARE
== END 2023-06-19 10:15 | disposition home or self-care (01) ==
LOC: EC 19:46 → 4FBP 21:10
PROVIDERS: ADMIT Obstetrics & Gynecology Obstetrics; ATTEND Obstetrics & Gynecology Obstetrics
DX: N99.820 Postprocedural hemorrhage of a genitourinary system organ or structure following a genitourinary system procedure (principal); K21.9 Gastro-esophageal reflux disease without esophagitis; E78.5 Hyperlipidemia, unspecified; R33.8 Other retention of urine; I10 Essential (primary) hypertension; Z90.710 Acquired absence of both cervix and uterus; Z79.899 Other long term (current) drug therapy; Z98.84 Bariatric surgery status
CPT/HCPCS: 96365; 96367; 99285; 36415; 86900; 86901; 80053 ×2; 85025; 85027 ×2; 85610; 85730; 86850; 58999; G0378 ×3; J2250; J1100; J0690 ×2; J2405; J0131; J1741

== ENCOUNTER → 2023-08-11 | Outpatient (CLI) | payer BC ==
--- NOTE | 2023-08-11 10:52 | USB ---
Reason for Exam: Follow-up at short interval from prior study. Patient History: Menarche at age 11. First Full-Term at age 25. Premenopausal. Previous Atypical Ductal Hyperplasia at age 41. Currently using Hormonal Contraceptives, for 19 years. 03/08/2022, High risk MG pre op needle loc RT on the right side. 02/21/2022, High risk MG stereo VAD BX RT on the right side. 10/2014, Excisional Biopsy on the Right side. 07/22/2014, Benign Core Biopsy on the right side. Risk Values: Ceci 5 year model risk: 4.4%. NCI Lifetime model risk: 29.7%. Technique: Method: Targeted. Doppler: Color. Patient Position: Supine. Prior Study Comparison: 02/03/2022 Bilateral MG 3D screening mammo w/cad, [facility]. 02/11/2022 Right MG 3D work up w/cad RT, [facility]. 02/03/2023 Bilateral US breast BILAT, [facility]. 02/03/2023 Bilateral MG 3D diag mammo w/cad JUSTEN, [facility]. Findings: The area of palpable concern of the right breast, the axilla of the right breast and the retroareolar of the right breast were scanned. Hypoechoic lesion at the right 1:00 position 4 cm from the nipple measuring 6 x 4 mm is unchanged. Additional stable 5 x 2 mm hypoechoic lesion at the right 9:00 breast 3 cm from the nipple is nonspecific and too small to characterize. A right axillary lymph node demonstrates borderline cortical thickening at 0.32 cm. Six-month follow-up is advised.. Overall Assessment: Probably benign, BI-RAD 3 Management: Diagnostic Breast Ultrasound of the right breast in 6 months. A clinical breast exam by your physician is recommended on an annual basis and results should be correlated with mammographic findings. This exam should not preclude additional follow-up of suspicious palpable abnormalities. Results were given to the patient verbally at the time of exam. Electronically signed and approved by: Keenan Brewster M.D. Radiologis
== END | disposition home or self-care (01) ==
LOC: RADUSWWP 10:19
PROVIDERS: ATTEND Surgery
DX: R92.8 Other abnormal and inconclusive findings on diagnostic imaging of breast (principal)

== ENCOUNTER → 2024-02-26 | Outpatient (CLI) | payer BC ==
--- NOTE | 2024-02-26 08:29 | USB ---
Reason for Exam: Follow-up at short interval from prior study. Patient History: Menarche at age 11. First Full-Term at age 25. Premenopausal. Previous Atypical Ductal Hyperplasia at age 41. Currently using Hormonal Contraceptives, for 19 years. 03/08/2022, High risk MG pre op needle loc RT on the right side. 02/21/2022, High risk MG stereo VAD BX RT on the right side. 10/2014, Excisional Biopsy on the Right side. 07/22/2014, Benign Core Biopsy on the right side. Risk Values: Ceci 5 year model risk: 4.4%. NCI Lifetime model risk: 29.7%. Technique: Method: Targeted. Prior Study Comparison: 02/03/2022 Bilateral MG 3D screening mammo w/cad, [facility]. 02/11/2022 Right MG 3D work up w/cad RT, [facility]. 02/03/2023 Bilateral MG 3D diag mammo w/cad JUST[facility], [facility]. Findings: The upper section of the breast of the right breast, the upper inner quadrant of the right breast, the axilla of the right breast and the retroareolar of the right breast were scanned. A complete US of all four quadrants of the breast, axilla, and retro-areolar region were reviewed. At the 1:00 position, 4 cm from the nipple, there is stable 4 mm hypoechoic area too small to characterize, likely a small complicated cyst. At the 9:00 position, 3 cm from the nipple, there is a stable 4 mm hypoechoic area too small to characterize, likely a small complicated cyst. Both of these are noted to be smaller compared to 02/03/2023 where they measured up to 7 mm. No axillary lymphadenopathy. Overall Assessment: Incomplete: need additional imaging evaluation, BI-RAD 0 Management: Diagnostic Mammogram of both breasts. For the patient's annual exam. SEE NOTE ON RISK SCORES BELOW. Note on Ceci scores and lifetime risk: 1. A Ceci score greater than 3% is considered moderate risk. If this is the case, consider specialist referral to assess eligibility for a risk reducing agent. 2. If overall lifetime risk for the development of breast cancer is 20% or higher, the patient may qualify for future screening with alternating mammogram and breast MRI. [facility], , 02/26/2024 8:25 AM. Electronically signed and approved by: Graham Alvarado M.D. Radiologist
== END | disposition home or self-care (01) ==
LOC: RADUSWWP 07:40
PROVIDERS: ATTEND Surgery
DX: R92.8 Other abnormal and inconclusive findings on diagnostic imaging of breast (principal)

== ENCOUNTER → 2024-03-21 | Outpatient (CLI) | payer BC ==
--- NOTE | 2024-03-21 14:50 | MM ---
Reason for Exam: Additional evaluation requested from prior study. Last mammogram was performed 1 year(s) and 2 month(s) ago. Patient History: Menarche at age 11. First Full-Term at age 25. Hysterectomy at age 43. Premenopausal. Previous Atypical Ductal Hyperplasia at age 41. Patient used Hormonal Contraceptives for 19 years. 03/08/2022, High risk MG pre op needle loc RT on the right side. 02/21/2022, High risk MG stereo VAD BX RT on the right side. 10/2014, Excisional Biopsy on the Right side. 07/22/2014, Benign Core Biopsy on the right side. Risk Values: Ceci 5 year model risk: 4.4%. NCI Lifetime model risk: 29.7%. Prior Study Comparison: 06/26/2015 Bilateral Screening Mammogram, [facility]. 07/06/2015 Right Diagnostic Mammogram, [facility]. 07/06/2015 Right Diagnostic Ultrasound, [facility]. 01/01/2016 Right Diagnostic Mammogram, [facility]. 01/01/2016 Right Diagnostic Ultrasound, [facility]. 06/30/2016 Bilateral Diagnostic Mammogram, [facility]. 06/30/2016 Right Diagnostic Ultrasound, [facility]. 02/06/2017 Right Diagnostic Ultrasound, [facility]. 01/30/2020 Bilateral Screening Mammogram, [facility]. 02/01/2021 Bilateral Screening Mammogram, [facility]. 02/03/2022 Bilateral MG 3D screening mammo w/cad, [facility]. 02/11/2022 Right MG 3D work up w/cad RT, [facility]. 02/03/2023 Bilateral US breast BILAT, [facility]. 02/03/2023 Bilateral MG 3D diag mammo w/cad [facility], [facility]. 08/11/2023 Right US breast RT, [facility]. 02/26/2024 Right US breast limited RT, [facility]. Tissue Density: The breasts are heterogeneously dense, which may obscure small masses. Findings: Analyzed By CAD. The pattern is symmetrical. No significant interval change evident. There are a few scattered punctate calcifications bilaterally. No significant interval change No suspicious groups of microcalcifications, spiculated or lobular masses, architectural distortion or other secondary signs of malignancy are mammographically apparent. Overall Assessment: Benign, BI-RAD 2 Management: Screening Mammogram of both breasts in 1 year. A negative mammogram report should not preclude additional follow up of suspicious palpable abnormalities. Patient should continue monthly self breast exam. A clinical breast exam by your physician is recommended on an annual basis and results should be correlated with mammographic findings. Note on Ceci scores and lifetime risk: 1. A Ceci score greater than 3% is considered moderate risk. If this is the case, consider specialist referral to assess eligibility for a risk reducing agent. 2. If overall lifetime risk for the development of breast cancer is 20% or higher, the patient may qualify for future screening with alternating mammogram and breast MRI. [facility], , 03/21/2024 2:47 PM. Electronically signed and approved by: Joseluis Lees D.O. Radiologis
== END | disposition home or self-care (01) ==
LOC: RADMAMWWP 14:14
PROVIDERS: ATTEND Internal Medicine
DX: R92.8 Other abnormal and inconclusive findings on diagnostic imaging of breast (principal); N60.91 Unspecified benign mammary dysplasia of right breast; R92.333 Mammographic heterogeneous density, bilateral breasts
CPT/HCPCS: 77062; 77066

== ENCOUNTER → 2024-07-23 | Outpatient (CLI) | payer BC ==
[2024-07-23 12:48] VITALS: BP 103/67; PULSE 71; RESP 16; TEMP 97.8; BMI 22.9
--- NOTE | 2024-07-23 13:02 | P.BASOAP ---
Subjective Progress Note Date: 07/23/24 Principal diagnosis: Obesity Patient returns for recheck. Last seen 1 year ago. She has gained 3 pounds since her last visit. Doing well otherwise. Still takes her antiacids Monday although admits that she probably does not need to take those. No heartburn. Still eating small amounts. When she is full she has episodes of runny nose and sneezing. This is unchanged. No pain. No recent labs. Objective - Vital Signs Vital signs: Vital Signs Temp 97.8 F 07/23/24 12:42 Pulse 71 07/23/24 12:42 Resp 16 07/23/24 12:42 BP 103/67 07/23/24 12:42 Pulse Ox FiO2 Intake & Output 07/22/24 07/23/24 07/23/24 18:59 06:59 18:59 Weight 61.689 kg - Exam Abdomen: Soft, nontender, nondistended Assessment/Plan (1) Obesity (BMI 30-39.9) Narrative/Plan: Patient doing well after previous sleeve gastrectomy. BMI 22.9. Continue dietary and exercise regimen. Try taking antiacids 1-2 times weekly. Check annual labs. Follow-up 1 year. Plan: Date: 07/23/24 Initial Weight: 98.543 kg Initial BMI: 36.7 Current Weight: 61.689 kg Current BMI: 22.9 Type of Surgery: Vertical Sleeve Gastrectomy Total Volume in Band: Previous Volume: Volume Removed: Volume Added: Band Size:
== END ==
LOC: BARWHC3 12:14
PROVIDERS: ATTEND Surgery
DX: E66.9 Obesity, unspecified (principal); Z68.22 Body mass index [BMI] 22.0-22.9, adult; Z88.1 Allergy status to other antibiotic agents; Z88.5 Allergy status to narcotic agent
CPT/HCPCS: 99211